=== PATIENT | female | born 1985 | race Caucasian/White ===

== ENCOUNTER → 2019-02-06 14:05 | Outpatient (CLI) | payer MEDICAID, SELFPAY ==
[2019-02-06 16:43] VITALS: BMI 36.0
== END ==
PROVIDERS: Family Provider Student in an Organized Health Care Education/Training Program; PCP Student in an Organized Health Care Education/Training Program; Referring Provider Physician Assistant; Visit Provider Physician Assistant
DX: J02.9 Acute pharyngitis, unspecified (principal)
CPT/HCPCS: 87081; 87880

== ENCOUNTER → 2023-09-20 | Outpatient (CLI) | payer OTHER, SELFPAY ==
--- NOTE | 2023-09-20 12:54 | RAD_ITS ---
STUDY: X-RAY RIGHT FOOT, GREAT TOE REASON FOR EXAM: Female, 37 years old. Injury. TECHNIQUE: 3 views of the right great toe were obtained. COMPARISON: None. FINDINGS: Normal first metatarsal. Normal metatarsophalangeal (M.T.P) joint of the great toe. Normal interphalangeal joint of the great toe. Normal phalanges of the great toe. There is no demonstrated fracture. The soft tissue structures are unremarkable. RAD/Toe(s) Min 2 Views IMPRESSION: Normal x-ray of the right great toe. Electronically Signed: Akhil Magdaleno MD at 13:22 EDT ,
--- OUTSIDE RECORDS SUMMARY | 2023-09-20 21:05 | XMS RPT_ITS | CCD ---
Author Name Unknown Address [address] [place] [address] Organization [facility] Care Team Providers Care Chartered Financial Analyst Name Role Phone Ramon Waller DO Primary Care Provider [phone] RAMON WALLER Primary Care Unavailable MARYSOL SORIANO Referring Unavailable RAMON WALLER Primary Care Unavailable MARYSOL SORIANO Attending Unavailable RAMON WALLER Primary Care Unavailable DENNIS SNYDER Attending Unavailable RAMON WALLER Primary Care Unavailable DENNIS SNYDER Attending Unavailable RAMON WALLER Primary Care Unavailable VALARIE DODD Attending Unavailable MARYSOL SORIANO Referring Unavailable MARYSOL SORIANO Attending Unavailable RAMON WALLER Primary Care Unavailable RAMON WALLER Primary Care Unavailable DENNIS SNYDER Attending Unavailable MARYSOL SORIANO Attending Unavailable RAMON WALLER Primary Care Unavailable RAMON WALLER Primary Care Unavailable DENNIS SNYDER Referring Unavailable DENNIS SNYDER Attending Unavailable Ramon Waller DO Primary Care Provider [phone] Medications Current Medications Medication Drug Class(es) Dates Sig (Normalized) Sig (Original) LORazepam 0.5 mg oral tablet (6 sources) Benzodiazepine Start: 03-02-2023 End: 04-01-2023 take 1 tablet by mouth twice daily as needed LORazepam (ATIVAN) 0.5 mg Indications: Anxiety with depression , Situational anxiety , Insomnia secondary to anxiety Take 1 tablet by mouth twice daily as needed for up to 30 days. 30 tablet 2 03/02/2023 04/01/2023 Active Completed/Discontinued Medications Medication Drug Class(es) Dates Sig (Normalized) Sig (Original) acyclovir 400 mg oral tablet (20 sources) Herpesvirus Nucleoside Analog DNA Polymerase Inhibitor, Herpes Simplex Virus Nucleoside Analog DNA Polymerase Inhibitor, Herpes Zoster Virus Nucleoside Analog DNA Polymerase Inhibitor Start: 02-23-2023 End: 05-16-2023 take 1 tablet by mouth twice daily acyclovir (ZOVIRAX) 400 mg tablet Take 1 tablet by mouth two times a day. 180 tablet 0 05/16/2023 Active Problems Active Problems Problem Classification Problem Date Documented Date Episodic/Chronic Adjustment disorders (20 sources) Adjustment disorder; Translations: [Adjustment disorder, unspecified] Onset: 04-24-2012 04-24-2012 Chronic Allergic reactions (20 sources) Urticaria; Translations: [Urticaria, unspecified] 01-19-2012 Episodic Anxiety disorders (20 sources) Anxiety; Translations: [Anxiety disorder, unspecified] Onset: 07-30-2022 01-18-2012 Chronic Contraceptive and procreative management (3 sources) Contraception status; Translations: [Encounter for other general counseling and advice on contraception] Episodic Disorders usually diagnosed in infancy, childhood, or adolescence (20 sources) Eating disorder; Translations: [Other disorders of eating] Onset: 04-24-2012 04-24-2012 Chronic Esophageal disorders (20 sources) Gastroesophageal reflux disease; Translations: [Gastro-esophageal reflux disease without esophagitis] Onset: 02-25-2009 02-25-2009 Chronic Fluid and electrolyte disorders (1 source) Hyperkalemia; Translations: [Hyperkalemia] Episodic Genitourinary symptoms and ill-defined conditions (20 sources) Genuine stress incontinence; Translations: [Stress incontinence (female) (male)] Onset: 01-05-2022 Chronic Immunizations and screening for infectious disease (1 source) Requires vaccination; Translations: [Encounter for immunization] Episodic Miscellaneous mental health disorders (20 sources) Psychophysiologic insomnia; Translations: [Psychophysiologic insomnia] Onset: 07-20-2016 07-20-2016 Chronic Mood disorders (20 sources) Depressive disorder; Translations: [Depression] Onset: 04-24-2012 04-24-2012 Chronic Nutritional deficiencies (20 sources) Vitamin D deficiency; Translations: [Vitamin D deficiency, unspecified] Onset: 05-11-2018 05-11-2018 Chronic Other congenital anomalies (20 sources) Madelung's deformity; 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), including shoulder girdle] Onset: 06-13-2013 06-13-2013 Chronic Other hereditary and degenerative nervous system conditions (20 sources) Restless legs; Translations: [Restless legs syndrome] Onset: 07-20-2016 07-20-2016 Chronic Other inflammatory condition of skin (2 sources) Perineal irritation; Translations: [Anogenital pruritus, unspecified] Episodic Other nutritional; endocrine; and metabolic disorders (20 sources) Body mass index 40+ - severely obese; Translations: [Morbid (severe) obesity due to excess calories] 11-24-2017 Chronic Other nutritional; endocrine; and metabolic disorders (20 sources) Cholesterol level - finding; Translations: [Lipoprotein deficiency] Onset: 05-11-2018 05-11-2018 Chronic Other nutritional; endocrine; and metabolic disorders (20 sources) Obese class I; Translations: [Obesity, unspecified] Onset: 06-30-2018 06-30-2018 Chronic Other nutritional; endocrine; and metabolic disorders (1 source) Obese class II; Translations: [Obesity, unspecified] Chronic Other nutritional; endocrine; and metabolic disorders (1 source) Morbid (severe) obesity due to excess calories; Translations: [Obesity, Class III, BMI 40-49.9 (morbid obesity) (HCC)] Onset: 11-24-2017 Chronic Other nutritional; endocrine; and metabolic disorders (1 source) Obesity, unspecified; Translations: [Obesity, Class II, BMI 35-39.9] Onset: 07-30-2022 Chronic Other upper respiratory disease (20 sources) Allergic rhinitis; Translations: [Allergic rhinitis, unspecified] Onset: 02-25-2009 02-25-2009 Chronic Viral infection (20 sources) Genital herpes simplex; Translations: [Herpesviral infection of urogenital system, unspecified] 01-19-2012 Chronic Past or Other Problems Problem Classification Problem Date Documented Da te Episodic/Chronic Acquired foot deformities (20 sources) Acquired bilateral pes planus; Translations: [Flat foot [pes planus] (acquired), right foot] Onset: 10-12-2009 10-12-2009 Episodic Malaise and fatigue (20 sources) Malaise and fatigue; Translations: [Other malaise] Onset: 02-25-2009 02-25-2009 Episodic Nausea and vomiting (20 sources) Nausea; Translations: [Nausea] Onset: 02-25-2009 02-25-2009 Episodic Nutritional deficiencies (20 sources) Iron deficiency; Translations: [Iron deficiency] Onset: 07-20-2016 07-20-2016 Episodic Other and unspecified benign neoplasm (19 sources) Lipoma of right upper limb; Translations: [Benign lipomatous neoplasm of skin and subcutaneous tissue of right arm] Onset: 01-05-2022 Episodic Other connective tissue disease (20 sources) Plantar fasciitis; Translations: [Plantar fascial fibromatosis] Onset: 10-12-2009 10-12-2009 Episodic Other connective tissue disease (17 sources) Muscle weakness; Translations: [Muscle weakness (generalized)] Onset: 02-22-2022 Episodic Other ear and sense organ disorders (20 sources) Tinnitus of vascular origin; Translations: [Pulsatile tinnitus, bilateral] Onset: 07-20-2016 07-20-2016 Episodic Other gastrointestinal disorders (20 sources) Abdominal bloating; Translations: [Abdominal distension (gaseous)] Onset: 02-25-2009 02-25-2009 Episodic Other inflammatory condition of skin (1 source) Anogenital pruritus, unspecified; Translations: [Perineal itching, female] Onset: 09-23-2022 Episodic Other lower respiratory disease (1 source) Persistent cough; Translations: [Persistent cough] Onset: 08-29-2022 Episodic Other non-traumatic joint disorders (20 sources) Pain of right wrist; Translations: [Pain in right wrist] Onset: 04-03-2015 04-03-2015 Episodic Other upper respiratory disease (1 source) Epistaxis; Translations: [Frequent nosebleeds] Onset: 08-29-2022 Episodic Viral infection (20 sources) Verruca vulgaris; Translations: [Viral wart, unspecified] Onset: 02-14-2011 02-14-2011 Episodic Results Test Name Value Interpretation Reference Range Facil ity Vital Signs Date Time Vital Sign Value Performing Clinician Teresa farmer 03-02-2023 15:35-0400 Body weight 105.05 kg Marysol Soriano APRN.CNP Work Phone: [facility] 03-02-2023 15:35-0400 Diastolic blood pressure 76 mm[Hg] Marysol Soriano APRN.CNP Work Phone: [facility] 03-02-2023 15:35-0400 Heart rate 65 /min Marysol Soriano APRN.CNP Work Phone: [facility] 03-02-2023 15:35-0400 Respiratory rate 16 /min Marysol Christie ADVICE NURSE.PROMOTIONAL ADVERTISING ASSISTANT Work Phone: [facility] 03-02-2023 15:35-0400 SaO2% (BldA) [Mass fraction] 99 % Marysol Christie ADVICE NURSE.PROMOTIONAL ADVERTISING ASSISTANT Work Phone: [facility] 03-02-2023 15:35-0400 Systolic blood pressure 118 mm[Hg] Marysol Christie ADVICE NURSE.PROMOTIONAL ADVERTISING ASSISTANT Work Phone: [facility] 08-19-2022 14:02-0500 Body weight 102.88 kg Dennis Snyder MD Work Phone: [facility] 08-19-2022 14:02-0500 Diastolic blood pressure 66 mm[Hg] Dennis Snyder MD Work Phone: [facility] 08-19-2022 14:02-0500 Systolic blood pressure 124 mm[Hg] Dennis Snyder MD Work Phone: [facility] 07-27-2022 16:00-0500 Body weight 100.61 kg Marysol Christie ADVICE NURSE.PROMOTIONAL ADVERTISING ASSISTANT Work Phone: [facility] 07-27-2022 16:00-0500 Diastolic blood pressure 82 mm[Hg] Marysol Christie ADVICE NURSE.PROMOTIONAL ADVERTISING ASSISTANT Work Phone: [facility] 07-27-2022 16:00-0500 Heart rate 90 /min Marysol Christie ADVICE NURSE.PROMOTIONAL ADVERTISING ASSISTANT Work Phone: [facility] 07-27-2022 16:00-0500 Respiratory rate 16 /min Marysol Christie ADVICE NURSE.PROMOTIONAL ADVERTISING ASSISTANT Work Phone: [facility] 07-27-2022 16:00-0500 SaO2% (BldA) [Mass fraction] 97 % Marysol Christie ADVICE NURSE.PROMOTIONAL ADVERTISING ASSISTANT Work Phone: [facility] 07-27-2022 16:00-0500 Systolic blood pressure 114 mm[Hg] Marysol Christie ADVICE NURSE.PROMOTIONAL ADVERTISING ASSISTANT Work Phone: [facility] 07-12-2022 15:54-0500 Body height 157 cm Dennis Snyder MD Work Phone: [facility] 07-12-2022 15:54-0500 Body weight 99.34 kg Dennis Snyder MD Work Phone: [facility] 07-12-2022 15:54-0500 Diastolic blood pressure 62 mm[Hg] Dennis Snyder MD Work Phone: [facility] 07-12-2022 15:54-0500 Systolic blood pressure 112 mm[Hg] Dennis Snyder MD Work Phone: [facility] 04-28-2022 15:56-0400 Body height 157 cm Dennis Snyder MD Work Phone: [facility] 04-28-2022 15:56-0400 Body weight 95.71 kg Dennis Snyder MD Work Phone: [facility] 04-28-2022 15:56-0400 Diastolic blood pressure 80 mm[Hg] Dennis Snyder MD Work Phone: [facility] 04-28-2022 15:56-0400 Systolic blood pressure 116 mm[Hg] Dennis Snyder MD Work Phone: [facility] 02-22-2022 07:00-0400 Diastolic blood pressure 84 mm[Hg] Valariehaley BrooksGriffin PT Work Phone: [facility] 02-22-2022 07:00-0400 Systolic blood pressure 122 mm[Hg] Valarie Griffin PT Work Phone: [facility] 01-05-2022 15:51-0400 Body weight 93.89 kg Marysol Hcristie ADVICE NURSE.PROMOTIONAL ADVERTISING ASSISTANT Work Phone: [facility] 01-05-2022 15:51-0400 Diastolic blood pressure 84 mm[Hg] Marysol Christie ADVICE NURSE.PROMOTIONAL ADVERTISING ASSISTANT Work Phone: [facility] 01-05-2022 15:51-0400 Heart rate 77 /min Marysol Christie ADVICE NURSE.PROMOTIONAL ADVERTISING ASSISTANT Work Phone: [facility] 01-05-2022 15:51-0400 Respiratory rate 16 /min Marysol Soriano ADVICE NURSE.PROMOTIONAL ADVERTISING ASSISTANT Work Phone: [facility] 01-05-2022 15:51-0400 SaO2% (BldA) [Mass fraction] 99 % Marysol Soriano ADVICE NURSE.PROMOTIONAL ADVERTISING ASSISTANT Work Phone: [facility] 01-05-2022 15:51-0400 Systolic blood pressure 120 mm[Hg] Marysol Soriano ADVICE NURSE.PROMOTIONAL ADVERTISING ASSISTANT Work Phone: [facility] Encounters Encounter Date Encounter Type Care Provider Facility Start: 05-16-2023 Refill Marysol ludwig ADVICE NURSE.PROMOTIONAL ADVERTISING ASSISTANT Work Phone: [facility] Procedures Date Procedure Procedure Detail Performing Clinician Start: 08-19-2022 Urine test visual color cmprsn meths Dennis Snyder MD Work Phone: Start: 01-05-2022 Urnls dip stick/tabl et rgnt auto w/o microscopy Marysol Soriano ADVICE NURSE.PROMOTIONAL ADVERTISING ASSISTANT Work Phone: Plan of Treatment Date Care Activity Detail Author Start: 06-18-2026 HPV TESTING HPV TESTING [facility] Start: 06-18-2026 PAP TESTING PAP TESTING [facility] Start: 03-26-2026 Urine microalbumin profile [facility] Start: 08-29-2023 COVID-19 VACCINE (3 - Booster for Moderna series) COVID-19 VACCINE (3 - Booster for Moderna series) [facility] Immunizations Immunization Date Immunization Notes Care Provider Fa cility 07-12-2022 Human Papillomavirus 9-valent vaccine Dennis Snyder MD Work Phone: [facility] 04-17-2021 influenza, injectabl e, quadrivalent, contains preservative Ramon Waller DO Work Phone: [facility] 04-17-2021 influenza virus vacc ine, unspecified formulation Marysol Soriano ADVICE NURSE.PROMOTIONAL ADVERTISING ASSISTANT Work Phone: [facility] 11-12-2020 COVID-19 vaccine, fu ll dose (MODERNA) Ramon Waller DO Work Phone: [facility] 10-15-2020 COVID-19 vaccine, fu ll dose (MODERNA) Ramon Waller DO Work Phone: [facility] 05-11-2018 influenza, injectabl e, quadrivalent, contains preservative Ramon Waller DO Work Phone: [facility] 03-26-2016 tetanus toxoid, redu aries diphtheria toxoid, and acellular pertussis vaccine, adsorbed Ramon Waller DO Work Phone: [facility] 01-14-2015 tetanus toxoid, redu aries diphtheria toxoid, and acellular pertussis vaccine, adsorbed Ramon Waller DO Work Phone: [facility] Work Phone: 05-22-2014 hepatitis B vaccine, adult dosage Ramon Waller DO Work Phone: [facility] Work Phone: 04-18-2014 influenza, seasonal, injectable Ramon Waller DO Work Phone: [facility] Work Phone: 12-18-2013 hepatitis B vaccine, adult dosage Ramon Waller DO Work Phone: [facility] Work Phone: 11-12-2013 hepatitis B vaccine, adult dosage Ramon Waller DO Work Phone: [facility] Work Phone: 03-24-2012 influenza virus vacc ine, unspecified formulation Ramon Waller DO Work Phone: [facility] Work Phone: Payers Date Payer Category Payer Medicaid [id number] 2017 Medicaid [employer] [id number] 2017-Present [phone] [address] [place] [address] Medicaid [id number] 2017 Medicaid [id number] 2017 Medicaid [id number] Social History Date Type Detail Facility Start: 02-16-2013 End: 04-28-2022 Tobacco smoking status NHIS Ex-smoker [facility] Work Phone: History of tobacco use Cigarette Smoker [facility] Work Phone: Start: 02-16-2013 End: 03-02-2023 Cigarettes smoked current (pack per day) - Reported 0.3 [facility] Start: 02-16-2013 End: 04-28-2022 Tobacco use and exposure Smokeless tobacco non-user [facility] Work Phone: Start: 06-18-2021 End: 03-03-2023 Alcohol intake Current drinker of alcohol (finding) [facility] Start: 04-09-2020 End: 07-26-2022 History SDOH Alcohol Frequency 2 [facility] Start: 04-09-2020 End: 07-26-2022 History SDOH Alcohol Std Drinks 1 [facility] Start: 02-16-2013 History SDOH Alcohol Comment Socially [facility] Start: 11-17-2019 End: 07-26-2022 History SDOH Social Connections Living 98 [facility] Start: 11-17-2019 History SDOH Physical Activity DPW 0 [facility] Start: 11-17-2019 End: 07-26-2022 History SDOH Stress 4 [facility] Start: 04-09-2020 End: 07-26-2022 History SDOH Financial 3 [facility] Start: 11-16-2019 Education 14 [facility] Start: 1985 Sex Assigned At Female [facility] Start: 12-31-2021 End: 07-26-2022 History SDOH Social Connections Phone 5 [facility] Start: 12-31-2021 History SDOH Physical Activity MPS 6 [facility] Start: 12-26-2021 End: 04-13-2022 Exposure to SARS-CoV-2 (event) Not sure [facility] History of tobacco use Current smoker [facility] Work Phone: Start: 07-26-2022 End: 03-02-2023 Social connection and isolation panel [facility] Do you belong to any clubs or organizations such as hindu groups, unions, fraternal or athletic groups, or school groups? No [facility] How often do you att end meetings of the clubs or organizations you belong to? Patient refused [facility] Are you now , , , , never or living with a partner? Refused [facility] How often to you hav e a drink containing alcohol? Monthly or less [facility] How many standard dr inks containing alcohol do you have on a typical day? 1 or 2 [facility] How often do you hav e 6 or more drinks on 1 occasion? Never [facility] How hard is it for y ou to pay for the very basics like food, housing, medical care, and heating Not very hard [facility] Do you feel stress - tense, restless, nervous, or anxious, or unable to sleep at night because your mind is troubled all the time - these days [OSQ] Very much [facility] (I/We) worried is[place] er (my/our) food would run out before (I/we) got money to buy more. Never true [facility] Start: 2020 Gender identity Identifies as female gender (finding) [facility] Start: 2020 Sexual orientation Heterosexual (finding) [facility] Medical Equipment Procedure Code Equipment Code Equipment Origin al Text Equipment Identifier Dates Dev Cncptv Essur e Perm - [id number] Start: 02-24-2011 Clinical Notes 07-05-2010 to 05-16-2023 Telephone Encounter - Subha Vázquez RN - 05/16/2023 9:44 AM ESTTelephone Encounter - Dangelo Li APRN.[facility] - 03/27/2023 4:31 PM Marysol Piper APRN.CNP - 03/02/2023 3:21 PM EDT Note Date & Type Note Facility 05-16-2023 Miscellaneous Notes Refill request received via [employer]. Patient last seen for annual exam on 07/12/22. Subha Vázquez RN documented in this encounter [facility] 03-27-2023 Miscellaneous Notes PDMP website checked and validated. All prescriptions have been APPROPRIATELY filled. No suspicious activity was identified. 03/27/2023 by Dangelo Li APRN.CNP The following approved medication requests have been transmitted electronically. Requested Prescriptions Signed Prescriptions Disp Refills Phentermine HCl (ADIPEX-P) 37.5 mg tablet 30 tablet 0 Sig: Take 1 tablet by mouth once daily for 30 days. BMI 42.62 Authorizing Provider: DANGELO LI APRN.CNP Patient has been identified by name and date of : Patient phones for refill(s): Requested Prescriptions Pending Prescriptions Disp Refills Phentermine HCl (ADIPEX-P) 37.5 mg tablet 30 tablet 0 Sig: Take 1 tablet by mouth once daily for 30 days. BMI 42.62 Date of last office visit in primary care: 03/02/23 Last 2 Encounter Wt Readings: Date: Wt: 03/02/2023 105.1 kg (231 lb 9.6 oz) 09/23/2022 104.8 kg (231 lb) Previous labs/tests for medication: Not applicable Please advise. Thank you. Alyse Sarabia LPN documented in this encounter [facility] 03-02-2023 Note HNO ID: [id number] Author: Marysol Soriano APRN.RICKY Service: ? Author Type: Nurse Practitioner Type: Progress Notes Filed: 03/03/2023 9:16 AM Note Text: Chief Complaint Patient presents with: Weight Loss: Adipex HPI Nettie Candelario is a 37 year old female who presents here today for Above Complaints. Today: Has taken Adipex in the past. Tolerated well. Stopped vaping 8 months ago and has since gained weight. Since stopping vaping has needed Ativan much less, fingernails have grown-which she has never been able to grow. Exercise-nothing routine. Diet-cutting back on carbs, portion sizes Past medical history, appointments, medications, allergies reviewed. 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 triamcinolone acetonide (KENALOG) 0.1 % ointment Apply to affected area twice daily. For 4 weeks. Then decrease to once daily. DULoxetine (CYMBALTA) 60 mg capsule Take 1 capsule by mouth once daily. triamcinolone acetonide (KENALOG) 0.1 % ointment Apply to affected area twice daily. For 10-14 days. levonorgestrel (MIRENA) 20 mcg/24 hr (5 years) IUD 1 Each by INTRAUTERINE route continuous. No current facility-administered medications on file prior to visit. Social History Social History Tobacco Use Smoking status: Former Packs/day: 0.30 Years: 8.00 Additional pack years: 0.00 Total pack years: 2.40 Types: Cigarettes Smokeless tobacco: Never Vaping Use Vaping Use: Some days Substance Use Topics Alcohol use: Yes Alcohol/week: 5.0 standard drinks of alcohol Types: 1 Cans of Beer (12oz), 1 Mixed Drinks per week Comment: Socially Drug use: No Review of Symptoms REVIEW OF SYSTEMS See HPI, otherwise negative EXAM: BP 118/76 (BP Site: Left Arm, BP Position: Sitting, BP Cuff Size: Regular Adult) Pulse 65 Resp 16 Wt 105.1 kg (231 lb 9.6 oz) LMP (LMP Unknown) SpO2 99% BMI 42.62 kg/m? General Appearance: Well appearing, alert, in no acute distress, well-hydrated, well nourished. and Morbidly obese. Lungs: Lungs clear to auscultation. No wheezing, rhonchi, rales.. Heart: RRR without murmur, gallop, or rubs. No ectopy. Psychiatric: pleasant, cooperative. Health Maintenance List HPV VACCINE(2 - 3-dose SCDM series) due on 08/09/2022 COVID-19 VACCINE(3 - Moderna series) due on 08/29/2023 INFLUENZA(1) due on 03/10/2023 DTAP,TDAP,TD(3 - Td or Tdap) due on 03/26/2026 PAP TESTING due on 06/18/2026 HPV TESTING due on 06/18/2026 HEPATITIS C SCREENING Completed HIV SCREENING Completed Data reviewed Previous records, office notes, OARRS report ASSESSMENT/PLAN: 1. Obesity, Class III, BMI 40-49.9 (morbid obesity) (HCC) - ICD9: 278.01, ICD10: E66.01 (primary diagnosis) Weight increasing - Behavioral and pharmacological intervention Has tolerated phentermine well in the past, is aware of potential common side effects. Follow up in 3 months in office. - PHENTERMINE 37.5 MG TABLET 2. Anxiety with depression - ICD9: 300.4, ICD10: F41.8 Refill given, is working well for her situational anxiety. - LORAZEPAM 0.5 MG TABLET 3. Situational anxiety - ICD9: 300.09, ICD10: F41.8 Refill given, is working well for her situational anxiety. - LORAZEPAM 0.5 MG TABLET 4. 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 - LORAZEPAM 0.5 MG TABLET Marysol Soriano APRN.[facility]ICK[facility] PDMP website checked and validated. All prescriptions have been APPROPRIATELY filled. No suspicious activity was identified. 03/02/2023 by Marysol Soriano CNP. [facility] 03-02-2023 History of Presen t illness Narrative Chief Complaint Patient presents with: Weight Loss: Adipex HPI Nettie Candelario is a 37 year old female who presents here today for Above Complaints. Today: Has taken Adipex in the past. Tolerated well. Stopped vaping 8 months ago and has since gained weight. Since stopping vaping has needed Ativan much less, fingernails have grown-which she has never been able to grow. Exercise-nothing routine. Diet-cutting back on carbs, portion sizes Past medical history, appointments, medications, allergies reviewed. 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 triamcinolone acetonide (KENALOG) 0.1 % ointment Apply to affected area twice daily. For 4 weeks. Then decrease to once daily. DULoxetine (CYMBALTA) 60 mg capsule Take 1 capsule by mouth once daily. triamcinolone acetonide (KENALOG) 0.1 % ointment Apply to affected area twice daily. For 10-14 days. levonorgestrel (MIRENA) 20 mcg/24 hr (5 years) IUD 1 Each by INTRAUTERINE route continuous. No current facility-administered medications on file prior to visit. Social History Social History Tobacco Use Smoking status: Former Packs/day: 0.30 Years: 8.00 Additional pack years: 0.00 Total pack years: 2.40 Types: Cigarettes Smokeless tobacco: Never Vaping Use Vaping Use: Some days Substance Use Topics Alcohol use: Yes Alcohol/week: 5.0 standard drinks of alcohol Types: 1 Cans of Beer (12oz), 1 Mixed Drinks per week Comment: Socially Drug use: No Review of Symptoms REVIEW OF SYSTEMS See HPI, otherwise negative EXAM: BP 118/76 (BP Site: Left Arm, BP Position: Sitting, BP Cuff Size: Regular Adult) Pulse 65 Resp 16 Wt 105.1 kg (231 lb 9.6 oz) LMP (LMP Unknown) SpO2 99% BMI 42.62 kg/m General Appearance: Well appearing, alert, in no acute distress, well-hydrated, well nourished. and Morbidly obese. Lungs: Lungs clear to auscultation. No wheezing, rhonchi, rales.. Heart: RRR without murmur, gallop, or rubs. No ectopy. Psychiatric: pleasant, cooperative. Health Maintenance List HPV VACCINE(2 - 3-dose SCDM series) due on 08/09/2022 COVID-19 VACCINE(3 - Moderna series) due on 08/29/2023 INFLUENZA(1) due on 03/10/2023 DTAP,TDAP,TD(3 - Td or Tdap) due on 03/26/2026 PAP TESTING due on 06/18/2026 HPV TESTING due on 06/18/2026 HEPATITIS C SCREENING Completed HIV SCREENING Completed Data reviewed Previous records, office notes, OARRS report ASSESSMENT/PLAN: 1. Obesity, Class III, BMI 40-49.9 (morbid obesity) (HCC) - ICD9: 278.01, ICD10: E66.01 (primary diagnosis) Weight increasing - Behavioral and pharmacological intervention Has tolerated phentermine well in the past, is aware of potential common side effects. Follow up in 3 months in office. - PHENTERMINE 37.5 MG TABLET 2. Anxiety with depression - ICD9: 300.4, ICD10: F41.8 Refill given, is working well for her situational anxiety. - LORAZEPAM 0.5 MG TABLET 3. Situational anxiety - ICD9: 300.09, ICD10: F41.8 Refill given, is working well for her situational anxiety. - LORAZEPAM 0.5 MG TABLET 4. 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 - LORAZEPAM 0.5 MG TABLET Marysol Soriano APRN.[facility] PDMP website checked and validated. All prescriptions have been APPROPRIATELY filled. No suspicious activity was identified. 03/02/2023 by Marysol Soriano CNP. documented in this encounter [facility] 10-04-2022 Miscellaneous Notes Spoke with pt and results and instructions given. Pt to check with pharmacy today. No further questions or concerns voiced. Madyson Luis LPN Rx sent. I would like to see her in follow up in 4-6 weeks. Dennis Snyder MD Left message for patient to call office. KJ- Please send in RX. Thank you. Jewell Pisano RN ----- Message from Dennis Snyder MD sent at 09/30/2022 4:48 PM EDT ----- Possible lichen simplex chronicus. Recommend minimizing any irritants. Will given kenalog ointment for her to use. Dennis Snyder MD documented in this encounter [facility] 09-23-2022 Note HNO ID: [id number] Author: Dennis Snyder MD Service: ? Author Type: Physician Type: Progress Notes Filed: 09/23/2022 2:03 PM Note Text: Director Of Materials offered: Patient accepts, visit chaperoned by Florence Corcoran MA. Nettie Candelario is a 36 year old female who presents today for a vulvar biopsy. Indication: persistent pruritis. UNIVERSAL PROTOCOL / SAFETY CHECKLIST Procedure to be Performed: Vulvar Biopsy Sign In: A Moment of CARE was completed. Personnel directly involved with the procedure wore the appropriate PPE (Personal Protective Equipment). Patient/Surrogate Stated/Verified: PATIENT VERIFIED(optional for EMERGENT procedures): Patient name, Date of , Relevant allergies, and The intended procedure Time Out Communication: Intended patient and procedure match the source documents. Consent documented and matches the intended procedure. Sign Out: SIGN OUT (optional for EMERGENT procedures): All specimen containers correctly labeled. All instruments, equipment, possible retained foreign bodies accounted for. Post-procedure follow-up management communicated and Plan of Care Visit completed when applicable. PROCEDURE NOTE: GROSS LESIONS: No BIOPSY: Area was cleansed with betadine and anesthetized with 2mL 1% lidocaine with 1:100,000 epi. 4mm Edwards punch used to biopsy region. HEMOSTASIS: Obtained with silver nitrate Procedure Summary: Patient tolerated procedure well. ASSESSMENT: Persistent perineal itching PLAN: Specimens labeled and sent to Pathology. Will notify patient of results in 1-2 weeks. Post-procedure instructions reviewed and written material given to the patient. Dennis Snyder MD [facility] 08-29-2022 Note HNO ID: [id number] Author: Marysol Soriano APRN.[employer] ADVERTISING ASSISTANT Service: ? Author Type: Nurse Practitioner Type: Progress Notes Filed: 08/29/2022 4:08 PM Note Text: Chief Complaint Patient presents with: Follow Up: Anxiety Cough: X 1 month Nose Bleed KENTON Candelario is a 36 year old female who presents here today for Above Complaints. Per appointment with myself on 07/27/2022: KENTON Candelario is a 36 year old female who presents here today for Above Complaints.. Today: Has had some increased anxiety lately specifically with her son moving out of the house. A couple other stresses at home. No SI/HI. Cymbalta is working well, this is a good dose for her. Has also had some difficulty sleeping as well. Likely r/t this stress as well. ASSESSMENT/PLAN: 1. Situational anxiety - ICD9: 300.09, ICD10: F41.8 (primary diagnosis) Continue current duloxetine dose. Labs to r/o contributing causes. Lorazepam prn-patient understands this is temporary and situational only. Trazodone at bedtime prn. Follow up in 1 month, sooner if necessary. - VITAMIN D 25 HYDROXY - TSH BLD - T3 BLD - T4 FREE/FREE THYROX - TRAZODONE 50 MG TABLET - LORAZEPAM 0.5 MG TABLET 2. 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 Labs to r/o contributing causes. Lorazepam prn-patient understands this is temporary and situational only. Trazodone at bedtime prn. Follow up in 1 month, sooner if necessary. - VITAMIN D 25 HYDROXY - TSH BLD - T3 BLD - T4 FREE/FREE THYROX - TRAZODONE 50 MG TABLET - LORAZEPAM 0.5 MG TABLET 3. Anxiety with depression - ICD9: 300.4, ICD10: F41.8 Continue current duloxetine dose. Labs to r/o contributing causes. Lorazepam prn-patient understands this is temporary and situational only. Trazodone at bedtime prn. Follow up in 1 month, sooner if necessary. - VITAMIN D 25 HYDROXY - TSH BLD - T3 BLD - T4 FREE/FREE THYROX - TRAZODONE 50 MG TABLET - LORAZEPAM 0.5 MG TABLET 4. Obesity, Class II, BMI 35-39.9 - ICD9: 278.00, ICD10: E66.9 - HGB A1C - VITAMIN D 25 HYDROXY - TSH BLD - T3 BLD - T4 FREE/FREE THYROX - LIPID PANEL BASIC - CBC - COMP METABOLIC PANEL Marysol Soriano APRN.PROMOTIONAL ADVERTISING ASSISTANT Today: Anxiety has improved since last visit. Nothing beyond current interventions. Is sleeping better overall. Takes Trazodone occasionally. Taking lorazepam about once every other day for her anxiety. Has decreased her screen time-things she sees on social media are one of her causes of anxiety. Cough and nosebleeds x1 month. No trend at all. Has a harsh cough-not currently productive. Negative COVID test. Has Dayquil, Nyquil, Dimetapp, Mucinex, Delsym-none have been effective. Has humidification in her house and has never had a dry house. Nosebleeds are worse when coughing or sneezing. Have lasted as long as 15 minutes. When blows nose it is white with some red blood streaks. Past medical history, appointments, medications, allergies reviewed. 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 triamcinolone acetonide (KENALOG) 0.1 % ointment Apply to affected area twice daily. For 10-14 days. acyclovir (ZOVIRAX) 400 mg tablet Take 1 tablet by mouth twice daily. DULoxetine (CYMBALTA) 60 mg capsule Take 1 capsule by mouth once daily. levonorgestrel (MIRENA) 20 mcg/24 hr (5 years) IUD 1 Each by INTRAUTERINE route continuous. No current facility-administered medications on file prior to visit. Social History Social History Tobacco Use Smoking status: Former Packs/day: 0.30 Years: 8.00 Pack years: 2.40 Types: Cigarettes Smokeless tobacco: Never Vaping Use Vaping Use: Some days Substance Use Topics Alcohol use: Yes Alcohol/week: 5.0 standard drinks Types: 1 Cans of Beer (12oz), 1 Mixed Drinks per week Comment: Socially Drug use: No Review of Symptoms REVIEW OF SYSTEMS See HPI, oth (more content not included)... [facility] 08-19-2022 Note HNO ID: [id number] Author: Dennis Snyder MD Service: ? Author Type: Physician Type: Progress Notes Filed: 08/19/2022 4:52 PM Note Text: Director Of Materials offered: Patient declines. Lissette presents today for IUD insertion for contraception. Patient's last menstrual period was 02/07/2015. GC/chlamydia: Not done: no risk factors and/or patient declines screening test: negative Side effects including irregular bleeding were discussed with the patient. The patient understands that it should be removed in 8 years or sooner if the patient desires a . IUD source: office provided IUD lot #: [id number] Exp date: 09/06/24 UNIVERSAL PROTOCOL / SAFETY CHECKLIST Procedure to be Performed: Intrauterine Device (IUD) Removal and Insertion Mirena Sign In: A Moment of CARE was completed. Personnel directly involved with the procedure wore the appropriate PPE (Personal Protective Equipment). Patient/Surrogate Stated/Verified: PATIENT VERIFIED(optional for EMERGENT procedures): Patient name, Date of , Relevant allergies, and The intended procedure Time Out Communication: Intended patient and procedure match the source documents. Consent documented and matches the intended procedure. Sign Out: SIGN OUT (optional for EMERGENT procedures): No specimen collected. All instruments, equipment, possible retained foreign bodies accounted for. Post-procedure follow-up management communicated and Plan of Care Visit completed when applicable. PROCEDURE: (REMOVAL) Speculum placed in vagina, IUD string visualized and grasped with ring forceps. (INSERTION) The cervix was prepped with betadine. The uterus sounded to 7.5 cm and the uterus is Midposition.. Using sterile technique, the Mirena IUD was inserted without difficulty and the string was cut to 4cm from the external os of the cervix. Patient tolerated procedure well. PLAN: Patient was advised to observe for signs and symptoms of infection including but not limited to fever, malodorous vaginal discharge and/or pain. The patient was told to check the string monthly for accurate placement. Bleeding expectations were reviewed. Follow up for next annual exam or sooner as needed. Dennis Snyder MD [facility] 08-19-2022 Instructions Florence Corcoran Ma - 08/19/2022 1:51 PM EST POST IUD INSTRUCTIONS You may have irregular bleeding during the first 3 months of use. You may have mild-severe cramping for the next 48 hours. You may use over the counter medication (Motrin, Tylenol) as needed. Your IUD must be removed or replaced based on the following table: IUD Type Removed or replaced within: Isidra 3 years Kyleena 5 years Mirena 8 years Paragard 10 years Call my office for signs/symptoms of infection such as severe cramping, fever, or unusual bleeding. Check for string placement as instructed by your doctor. If you have any additional questions, please contact the office. documented in this encounter [facility] 08-19-2022 History of Presen t illness Narrative Director Of Materials offered: Patient declines. Lissette presents today for IUD insertion for contraception. Patient's last menstrual period was 02/07/2015. GC/chlamydia: Not done: no risk factors and/or patient declines screening test: negative Side effects including irregular bleeding were discussed with the patient. The patient understands that it should be removed in 8 years or sooner if the patient desires a . IUD source: office provided IUD lot #: [id number] Exp date: 09/06/24 UNIVERSAL PROTOCOL / SAFETY CHECKLIST Procedure to be Performed: Intrauterine Device (IUD) Removal and Insertion Mirena Sign In: A Moment of CARE was completed. Personnel directly involved with the procedure wore the appropriate PPE (Personal Protective Equipment). Patient/Surrogate Stated/Verified: PATIENT VERIFIED(optional for EMERGENT procedures): Patient name, Date of , Relevant allergies, and The intended procedure Time Out Communication: Intended patient and procedure match the source documents. Consent documented and matches the intended procedure. Sign Out: SIGN OUT (optional for EMERGENT procedures): No specimen collected. All instruments, equipment, possible retained foreign bodies accounted for. Post-procedure follow-up management communicated and Plan of Care Visit completed when applicable. PROCEDURE: (REMOVAL) Speculum placed in vagina, IUD string visualized and grasped with ring forceps. (INSERTION) The cervix was prepped with betadine. The uterus sounded to 7.5 cm and the uterus is Midposition.. Using sterile technique, the Mirena IUD was inserted without difficulty and the string was cut to 4cm from the external os of the cervix. Patient tolerated procedure well. PLAN: Patient was advised to observe for signs and symptoms of infection including but not limited to fever, malodorous vaginal discharge and/or pain. The patient was told to check the string monthly for accurate placement. Bleeding expectations were reviewed. Follow up for next annual exam or sooner as needed. Dennis Snyder MD documented in this encounter [facility] 08-10-2022 Miscellaneous Notes Last Office Visit: 07/27/2022 Future Office Visit: 08/24/2022 Requested Prescriptions Pending Prescriptions Disp Refills DULoxetine (CYMBALTA) 60 mg capsule 90 capsule 1 Sig: Take 1 capsule by mouth once daily. Date of Last Labs: 07/30/2022 documented in this encounter [facility] 08-03-2022 Miscellaneous Notes Spoke with patient. Given message from provider's office. Patient verbalizes understanding. Selma Peterson RN Left message to return call. Please call patient and let her know that lab work looks good. Potassium level is very slightly elevated. I would like repeat potassium level in 2 weeks. Order placed. Thyroid level overall look unremarkable. We will continue to monitor these. Vitamin D level is low. I would recommend a 5000 units per day of vitamin d3 supplement. This is found over the counter. All other labs look fantastic! Keep up the good work. Thank you, Dangelo Li APRN.[facility] documented in this encounter [facility] 07-27-2022 Note HNO ID: [id number] Author: Marysol Soriano APRN.RICKY Service: ? Author Type: Nurse Practitioner Type: Progress Notes Filed: 07/27/2022 6:48 PM Note Text: Chief Complaint Patient presents with: Anxiety HPI Nettie Candelario is a 36 year old female who presents here today for Above Complaints.. Today: Has had some increased anxiety lately specifically with her son moving out of the house. A couple other stresses at home. No SI/HI. Cymbalta is working well, this is a good dose for her. Has also had some difficulty sleeping as well. Likely r/t this stress as well. Past medical history, appointments, medications, allergies reviewed. 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 triamcinolone acetonide (KENALOG) 0.1 % ointment Apply to affected area twice daily. For 10-14 days. DULoxetine (CYMBALTA) 60 mg capsule Take 1 capsule by mouth once daily. acyclovir (ZOVIRAX) 400 mg tablet Take 1 tablet by mouth twice daily. DULoxetine (CYMBALTA) 60 mg capsule Take 1 capsule by mouth once daily. levonorgestrel (MIRENA) 20 mcg/24 hr (5 years) IUD 1 Each by INTRAUTERINE route continuous. No current facility-administered medications on file prior to visit. Social History Social History Tobacco Use Smoking status: Former Packs/day: 0.30 Years: 8.00 Pack years: 2.40 Types: Cigarettes Smokeless tobacco: Never Vaping Use Vaping Use: Some days Substance Use Topics Alcohol use: Yes Alcohol/week: 5.0 standard drinks Types: 1 Cans of Beer (12oz), 1 Mixed Drinks per week Comment: Socially Drug use: No Review of Symptoms REVIEW OF SYSTEMS See HPI, otherwise negative EXAM: BP 114/82 (BP Site: Left Arm, BP Position: Sitting, BP Cuff Size: Regular Adult) Pulse 90 Resp 16 Wt 100.6 kg (221 lb 12.8 oz) LMP 02/07/2015 SpO2 97% BMI 40.82 kg/m? General Appearance: Well appearing, alert, in no acute distress, well-hydrated, well nourished.. Lungs: Lungs clear to auscultation. No wheezing, rhonchi, rales.. Heart: RRR without murmur, gallop, or rubs. No ectopy. Psychiatric: pleasant, cooperative, no SI/HI. Health Maintenance List COVID-19 VACCINE(3 - Booster for Moderna series) due on 01/07/2021 INFLUENZA(1) due on 03/10/2022 DTAP,TDAP,TD(3 - Td or Tdap) due on 03/26/2026 PAP TESTING due on 06/18/2026 HPV TESTING due on 06/18/2026 HEPATITIS C SCREENING Completed HIV SCREENING Completed Data reviewed Previous records, office notes, OARRS report ASSESSMENT/PLAN: 1. Situational anxiety - ICD9: 300.09, ICD10: F41.8 (primary diagnosis) Continue current duloxetine dose. Labs to r/o contributing causes. Lorazepam prn-patient understands this is temporary and situational only. Trazodone at bedtime prn. Follow up in 1 month, sooner if necessary. - VITAMIN D 25 HYDROXY - TSH BLD - T3 BLD - T4 FREE/FREE THYROX - TRAZODONE 50 MG TABLET - LORAZEPAM 0.5 MG TABLET 2. 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 Labs to r/o contributing causes. Lorazepam prn-patient understands this is temporary and situational only. Trazodone at bedtime prn. Follow up in 1 month, sooner if necessary. - VITAMIN D 25 HYDROXY - TSH BLD - T3 BLD - T4 FREE/FREE THYROX - TRAZODONE 50 MG TABLET - LORAZEPAM 0.5 MG TABLET 3. Anxiety with depression - ICD9: 300.4, ICD10: F41.8 Continue current duloxetine dose. Labs to r/o contributing causes. Lorazepam prn-patient understands this is temporary and situational only. Trazodone at bedtime prn. Follow up in 1 month, sooner if necessary. - VITAMIN D 25 HYDROXY - TSH BLD - T3 BLD - T4 FREE/FREE THYROX - TRAZODONE 50 MG TABLET - LORAZEPAM 0.5 MG TABLET 4. Obesity, Class II, BMI 35-39.9 - ICD9: 278.00, ICD10: E66.9 - HGB A1C - VITAMIN D 25 HYDROXY - TSH BLD - T3 BLD - T4 FREE/FREE THYROX - LIPID PANEL BASIC - CBC - COMP METABOLIC PANEL Marysol Sroiano APRN.CNP PDMP web (more content not included)... [facility] 07-27-2022 Instructions Marysol Soriano APRN.CNP - 07/27/2022 4:39 PM EST Get your labs drawn May continue to take ativan as needed for anxiety, continue yoga and trying to eliminate triggers for anxiety Try trazodone at night for sleep, if 1 tablet is too much you can try a 1/2 tablet as well documented in this encounter [facility] 07-27-2022 History of Presen t illness Narrative Chief Complaint Patient presents with: Anxiety HPI Nettie Candelario is a 36 year old female who presents here today for Above Complaints.. Today: Has had some increased anxiety lately specifically with her son moving out of the house. A couple other stresses at home. No SI/HI. Cymbalta is working well, this is a good dose for her. Has also had some difficulty sleeping as well. Likely r/t this stress as well. Past medical history, appointments, medications, allergies reviewed. 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 triamcinolone acetonide (KENALOG) 0.1 % ointment Apply to affected area twice daily. For 10-14 days. DULoxetine (CYMBALTA) 60 mg capsule Take 1 capsule by mouth once daily. acyclovir (ZOVIRAX) 400 mg tablet Take 1 tablet by mouth twice daily. DULoxetine (CYMBALTA) 60 mg capsule Take 1 capsule by mouth once daily. levonorgestrel (MIRENA) 20 mcg/24 hr (5 years) IUD 1 Each by INTRAUTERINE route continuous. No current facility-administered medications on file prior to visit. Social History Social History Tobacco Use Smoking status: Former Packs/day: 0.30 Years: 8.00 Pack years: 2.40 Types: Cigarettes Smokeless tobacco: Never Vaping Use Vaping Use: Some days Substance Use Topics Alcohol use: Yes Alcohol/week: 5.0 standard drinks Types: 1 Cans of Beer (12oz), 1 Mixed Drinks per week Comment: Socially Drug use: No Review of Symptoms REVIEW OF SYSTEMS See HPI, otherwise negative EXAM: BP 114/82 (BP Site: Left Arm, BP Position: Sitting, BP Cuff Size: Regular Adult) Pulse 90 Resp 16 Wt 100.6 kg (221 lb 12.8 oz) LMP 02/07/2015 SpO2 97% BMI 40.82 kg/m General Appearance: Well appearing, alert, in no acute distress, well-hydrated, well nourished.. Lungs: Lungs clear to auscultation. No wheezing, rhonchi, rales.. Heart: RRR without murmur, gallop, or rubs. No ectopy. Psychiatric: pleasant, cooperative, no SI/HI. Health Maintenance List COVID-19 VACCINE(3 - Booster for Moderna series) due on 01/07/2021 INFLUENZA(1) due on 03/10/2022 DTAP,TDAP,TD(3 - Td or Tdap) due on 03/26/2026 PAP TESTING due on 06/18/2026 HPV TESTING due on 06/18/2026 HEPATITIS C SCREENING Completed HIV SCREENING Completed Data reviewed Previous records, office notes, [facility] report ASSESSMENT/PLAN: 1. Situational anxiety - ICD9: 300.09, ICD10: F41.8 (primary diagnosis) Continue current duloxetine dose. Labs to r/o contributing causes. Lorazepam prn-patient understands this is temporary and situational only. Trazodone at bedtime prn. Follow up in 1 month, sooner if necessary. - VITAMIN D 25 HYDROXY - TSH BLD - T3 BLD - T4 FREE/FREE THYROX - TRAZODONE 50 MG TABLET - LORAZEPAM 0.5 MG TABLET 2. 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 Labs to r/o contributing causes. Lorazepam prn-patient understands this is temporary and situational only. Trazodone at bedtime prn. Follow up in 1 month, sooner if necessary. - VITAMIN D 25 HYDROXY - TSH BLD - T3 BLD - T4 FREE/FREE THYROX - TRAZODONE 50 MG TABLET - LORAZEPAM 0.5 MG TABLET 3. Anxiety with depression - ICD9: 300.4, ICD10: F41.8 Continue current duloxetine dose. Labs to r/o contributing causes. Lorazepam prn-patient understands this is temporary and situational only. Trazodone at bedtime prn. Follow up in 1 month, sooner if necessary. - VITAMIN D 25 HYDROXY - TSH BLD - T3 BLD - T4 FREE/FREE THYROX - TRAZODONE 50 MG TABLET - LORAZEPAM 0.5 MG TABLET 4. Obesity, Class II, BMI 35-39.9 - ICD9: 278.00, ICD10: E66.9 - HGB A1C - VITAMIN D 25 HYDROXY - TSH BLD - T3 BLD - T4 FREE/FREE THYROX - LIPID PANEL BASIC - CBC - COMP METABOLIC PANEL Marysol Soriano APRN.CNP PDMP website checked and validated. All prescriptions have been APPROPRIATELY filled. No suspicious activity was identified. 07/27/2022 by Marysol Soriano CNP. documented in this encounter [facility] 07-12-2022 Note HNO ID: [id number] Author: Florence Corcoran Ma Service: ? Author Type: ? Type: Progress Notes Filed: 07/12/2022 4:26 PM Note Text: Patient identified by name and date of . Nettie Pozo Shows is here for her HPV 9 vaccination, injection # one of the series. Patient ?No Gardasil injection was given without incident. See immunizations for details of immunizations administered today. VIS sheet provided: Yes Patient advised to follow up in 2 months from the 1st injection Provider Dennis Snyder MD was present in office at time of injection. [facility] 07-12-2022 Note HNO ID: [id number] Author: Dennis Snyder MD Service: ? Author Type: Physician Type: Progress Notes Filed: 07/12/2022 4:26 PM Note Text: Lissette is a 36 year old who presents for an annual gynecologic exam. She still has a small spot of itching. Menses: no menses - Mirena IUD - just spotting. Contraception: IUD HPV vaccine: No Last Pap: 06/25/2021 normal HPV: 06/22/2021 negative History of abnormal pap: Yes - LEEP 1999 Last mammogram: never OB History T3 L3 SAB0 IAB0 Ectopic0 Multiple0 Live Births3 K 9 Handler/ Deputy History LMP: 02/07/2015, IUD Age at Menarche: Age at First : Age at Menopause: K 7 Handler/ Deputy History Comments: Sexual Activity: Not Currently; Male; Essure/Mirena Contraception: Surgical PAST MEDICAL HISTORY Diagnosis Date Abdominal Bloating Allergic Rhinitis Anxiety Depression Genital herpes GERD (Gastroesophageal Reflux Disease) History of abnormal Pap smear Madelung's deformity Obesity Other Malaise and Fatigue Urticaria PAST SURGICAL HISTORY Procedure Laterality Date CONIZATION CERVIX W/WO DANDC RPR ELTRD EXC 1999 LEEP-Cervix PAST SURGICAL HISTORY OF 2010 sterilization with essure PAST SURGICAL HISTORY OF 02/07/14 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 REMOVE TONSILS AND ADENOIDS; AGE 12 OVER FAMILY HISTORY Adopted: Yes Problem Relation Age of Onset other (Rapid Heart Rate [Other]) Mother SVT Cancer Maternal Grandfather stomach cancer Emphysema Maternal Grandmother SOCIAL HISTORY Social History Tobacco Use Smoking status: Former Packs/day: 0.30 Years: 8.00 Pack years: 2.40 Types: Cigarettes Smokeless tobacco: Never Vaping Use Vaping Use: Some days Substance Use Topics Alcohol use: Yes Alcohol/week: 5.0 standard drinks Types: 1 Cans of Beer (12oz), 1 Mixed Drinks per week Comment: Socially Drug use: No REVIEW OF SYSTEMS Abdomen: No abdominal pain, nausea, vomiting, diarrhea, or constipation. No bloating, early satiety, indigestion, or increased flatulence. Bladder: No dysuria, gross hematuria, urinary frequency, urinary urgency, or incontinence. Breast: No breast lumps, nipple d/c, overlying skin changes, redness or skin retraction. Allergies and current medication updated:Yes EXAM: BP 112/62 Ht 5' 1.81 (1.57m) Wt 219 lb (99.3kg) LMP 02/07/2015 BMI 40.30 kg/(m2). GENERAL: pleasant, female in no apparent distress BREAST: soft, non-tender, symmetric, no dominant mass, normal nipple-areolar complex, no lymphadenopathy, and no nipple discharge CHEST: Normal inspiratory effort ABDOMEN: soft, non-tender, and no masses PELVIC: external genitalia normal, normal Bartholin's glands, urethra, Saxapahaw's glands, no vulvar lesions, no cervical lesions, physiologic discharge present, normal appearing perineal body and perianal region (patient pointed to area of itching on perineum AND it is normal in appearance) BIMANUAL: uterus normal size, shape and consistency, no adnexal masses, and non-tender RECTOVAGINAL: deferred. NEURO: alert and oriented x3,exam grossly non-focal EXTREMITIES: normal ASSESSMENT/PLAN: 1) Health maintenance: Pap/HPV up to date. Mammogram starting age 40. Nutrition, exercise and routine health maintenance exams reviewed. HPV vaccine: ordered 2) Contraception: IUD. Contraceptive options reviewed and information provided. Follow up for removal AND new Mirena insertion. 3) Perineal itching - rx kenalog ointment given. If itching persists recommend biopsy. 4) Follow up one year or sooner as needed Dennis Snyder MD [facility] 07-12-2022 History of Presen t illness Narrative Patient identified by name and date of . Nettie Pozo Shows is here for her HPV 9 vaccination, injection # one of the series. Patient ?No Gardasil injection was given without incident. See immunizations for details of immunizations administered today. VIS sheet provided: Yes Patient advised to follow up in 2 months from the 1st injection Provider Dennis Snyder MD was present in office at time of injection. Lissette is a 36 year old who presents for an annual gynecologic exam. She still has a small spot of itching. Menses: no menses - Mirena IUD - just spotting. Contraception: IUD HPV vaccine: No Last Pap: 06/25/2021 normal HPV: 06/22/2021 negative History of abnormal pap: Yes - LEEP 1999 Last mammogram: never OB History T3 L3 SAB0 IAB0 Ectopic0 Multiple0 Live Births3 K 9 Handler/ Deputy History LMP: 02/07/2015, IUD Age at Menarche: Age at First : Age at Menopause: K 7 Handler/ Deputy History Comments: Sexual Activity: Not Currently; Male; Essure/Mirena Contraception: Surgical PAST MEDICAL HISTORY Diagnosis Date Abdominal Bloating Allergic Rhinitis Anxiety Depression Genital herpes GERD (Gastroesophageal Reflux Disease) History of abnormal Pap smear Madelung's deformity Obesity Other Malaise and Fatigue Urticaria PAST SURGICAL HISTORY Procedure Laterality Date CONIZATION CERVIX W/WO D&C RPR ELTRD EXC 1999 LEEP-Cervix PAST SURGICAL HISTORY OF 2010 sterilization with essure PAST SURGICAL HISTORY OF 02/07/14 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 REMOVE TONSILS AND ADENOIDS; AGE 12 OVER FAMILY HISTORY Adopted: Yes Problem Relation Age of Onset other (Rapid Heart Rate [Other]) Mother SVT Cancer Maternal Grandfather stomach cancer Emphysema Maternal Grandmother SOCIAL HISTORY Social History Tobacco Use Smoking status: Former Packs/day: 0.30 Years: 8.00 Pack years: 2.40 Types: Cigarettes Smokeless tobacco: Never Vaping Use Vaping Use: Some days Substance Use Topics Alcohol use: Yes Alcohol/week: 5.0 standard drinks Types: 1 Cans of Beer (12oz), 1 Mixed Drinks per week Comment: Socially Drug use: No REVIEW OF SYSTEMS Abdomen: No abdominal pain, nausea, vomiting, diarrhea, or constipation. No bloating, early satiety, indigestion, or increased flatulence. Bladder: No dysuria, gross hematuria, urinary frequency, urinary urgency, or incontinence. Breast: No breast lumps, nipple d/c, overlying skin changes, redness or skin retraction. Allergies and current medication updated:Yes EXAM: BP 112/62 Ht 5' 1.81 (1.57m) Wt 219 lb (99.3kg) LMP 02/07/2015 BMI 40.30 kg/(m^2). GENERAL: pleasant, female in no apparent distress BREAST: soft, non-tender, symmetric, no dominant mass, normal nipple-areolar complex, no lymphadenopathy, and no nipple discharge CHEST: Normal inspiratory effort ABDOMEN: soft, non-tender, and no masses PELVIC: external genitalia normal, normal Bartholin's glands, urethra, Saxapahaw's glands, no vulvar lesions, no cervical lesions, physiologic discharge present, normal appearing perineal body and perianal region (patient pointed to area of itching on perineum & it is normal in appearance) BIMANUAL: uterus normal size, shape and consistency, no adnexal masses, and non-tender RECTOVAGINAL: deferred. NEURO: alert and oriented x3,exam grossly non-focal EXTREMITIES: normal ASSESSMENT/PLAN: 1) Health maintenance: Pap/HPV up to date. Mammogram starting age 40. Nutrition, exercise and routine health maintenance exams reviewed. HPV vaccine: ordered 2) Contraception: IUD. Contraceptive options reviewed and information provided. Follow up for removal & new Mirena insertion. 3) Perineal itching - rx kenalog ointment given. If itching persists recommend biopsy. 4) Follow up one year or sooner as needed Dennis Snyder MD documented in this encounter [facility] 07-12-2022 Arvind Corcoran Az - 07/12/2022 4:17 PM EST Gardasil Gardasil is a vaccine to protect against Human Papillomavirus (HPV) types 6, 11, 16, 18, 31,33,45, 52, 58. These viruses cause cancer and precancerous lesions on the cervix (opening between vagina and uterus), in the vagina and on the vulva (skin around the outside of the vagina) as well as genital warts. The vaccine cannot cause these diseases and cannot treat them if already present. Gardasil works best if given before contact with HPV. Most people are exposed to HPV soon after starting sexual activity. The vaccine is recommended between the ages of 9 and 45. Gardasil does not protect against all strains of HPV. Women who receive the vaccine still need to have regular pelvic exams and cervical cancer screening with the pap smear. You should ask your doctor if Gardasil is right for you if you have a weakened immune system, a bleeding disorder, plan to become soon or have a current illness causing fever. Gardasil is not recommended for women. You should be sure your doctor is aware of any allergies you have and all medications and herbal supplements you take. Gardasil is given to those ages 9-14 in 2 doses at 0 and 8 months. In ages 15-45, three injections are given at 0,2,6 months. Common side effects include pain, redness, itching and swelling at the injection site, nausea, fever, dizziness and fainting. Rare but potentially serious reactions have been reported. These include allergic reaction, swollen glands, joint and muscle pain, weakness and Guillain-[place] syndrome. documented in this encounter [facility] 04-28-2022 Note HNO ID: [id number] Author: Dennis Snyder MD Service: ? Author Type: Physician Type: Progress Notes Filed: 04/28/2022 4:36 PM Note Text: Nettie Candelario is a 36 year old female who presents for problem visit. HPI: Patient reports intermittent perineal irritation. She states she washes frequently and uses Dove bodywash. OB History T3 L3 SAB0 IAB0 Ectopic0 Multiple0 Live Births3 K 9 Handler/ Deputy History LMP: 02/07/2015, IUD Age at Menarche: Age at First : Age at Menopause: K 7 Handler/ Deputy History Comments: Sexual Activity: Not Currently; Male; Essure Contraception: Surgical PAST MEDICAL HISTORY Diagnosis Date Abdominal Bloating Allergic Rhinitis Anxiety Depression Genital herpes GERD (Gastroesophageal Reflux Disease) History of abnormal Pap smear Madelung's deformity Obesity Other Malaise and Fatigue Urticaria PAST SURGICAL HISTORY Procedure Laterality Date CONIZATION CERVIX W/WO DANDC RPR ELTRD EXC 1999 LEEP-Cervix PAST SURGICAL HISTORY OF 2010 sterilization with essure PAST SURGICAL HISTORY OF 02/07/14 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 REMOVE TONSILS AND ADENOIDS; AGE 12 OVER FAMILY HISTORY Adopted: Yes Problem Relation Age of Onset other (Rapid Heart Rate [Other]) Mother SVT Cancer Maternal Grandfather stomach cancer Emphysema Maternal Grandmother Social History Tobacco Use Smoking status: Former Packs/day: 0.30 Years: 8.00 Pack years: 2.40 Types: Cigarettes Smokeless tobacco: Never Vaping Use Vaping Use: Some days Substance Use Topics Alcohol use: Yes Alcohol/week: 5.0 standard drinks Types: 1 Cans of Beer (12oz), 1 Mixed Drinks per week Comment: Socially Drug use: No Current Outpatient Medications Medication Sig DULoxetine (CYMBALTA) 60 mg capsule Take 1 capsule by mouth once daily. acyclovir (ZOVIRAX) 400 mg tablet Take 1 tablet by mouth twice daily. DULoxetine (CYMBALTA) 60 mg capsule Take 1 capsule by mouth once daily. levonorgestrel (MIRENA) 20 mcg/24 hr (5 years) IUD 1 Each by INTRAUTERINE route continuous. No current facility-administered medications for this visit. Allergies As of Date: 04/28/2022 (No Known Allergies) Fully Assessed 04/28/2022 Allergies and current medication updated:Yes EXAM: BP 116/80 Ht 5' 1.811 (1.57m) Wt 211 lb (95.7kg) LMP 02/07/2015 BMI 38.83 kg/(m2). GENERAL: pleasant, female in no apparent distress PELVIC: external genitalia normal, no vulvar lesions, normal appearing perineal body and perianal region ASSESSMENT AND PLAN: 36yo female with perineal irritation Patient reassured perineum is normal in appearance. Advised on perineal hygiene AND vitamin AANDD barrier ointment. Patient to call if irritation fails to resolve. Medical Decision Making: Problems: Minimal: Self-limited or minor problem Risk: Minimal: Minimal risk from testing/treatment Medical Decision Making Level: 2 - Straightforward Dennis Snyder MD [facility] 04-28-2022 Instructions Dennis Snyder MD - 04/28/2022 4:25 PM EDT Minimizing irritation of the vulva (area around the vagina) Wear white cotton underwear. Avoid synthetic fabrics and tight clothing. Sleep wearing shorts or pajama bottoms without underwear. Shower as soon as possible after exercise. Avoid clothing detergents and soaps with perfumes or dyes. Use warm (not hot) water to wash the vulva and if you use soap use a product designed for sensitive skin (like Dove or Cetaphil). Do not douche or use creams/powders in the vulvar area unless instructed by your physician. If you must douche, use only plain warm water. Make sure the vulva is dry before dressing by patting dry with a towel. Avoid vigorous rubbing with the towel. You may want to use the blow dryer (on the cool setting only!) on the vulva. The most important way to let your body heal is by avoiding scratching. Many patients find it difficult to avoid scratching at night when they are most aware of the itchiness. You can try taking Benadryl just before bedtime. Some women find it helpful to wear cotton gloves to bed to avoid scratching at night. Vitamin A&D barrier ointment documented in this encounter [facility] 04-28-2022 History of Presen t illness Narrative Nettie Candelario is a 36 year old female who presents for problem visit. HPI: Patient reports intermittent perineal irritation. She states she washes frequently and uses Dove bodywash. OB History T3 L3 SAB0 IAB0 Ectopic0 Multiple0 Live Births3 K 9 Handler/ Deputy History LMP: 02/07/2015, IUD Age at Menarche: Age at First : Age at Menopause: K 7 Handler/ Deputy History Comments: Sexual Activity: Not Currently; Male; Essure Contraception: Surgical PAST MEDICAL HISTORY Diagnosis Date Abdominal Bloating Allergic Rhinitis Anxiety Depression Genital herpes GERD (Gastroesophageal Reflux Disease) History of abnormal Pap smear Madelung's deformity Obesity Other Malaise and Fatigue Urticaria PAST SURGICAL HISTORY Procedure Laterality Date CONIZATION CERVIX W/WO D&C RPR ELTRD EXC 1999 LEEP-Cervix PAST SURGICAL HISTORY OF 2010 sterilization with essure PAST SURGICAL HISTORY OF 02/07/14 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 REMOVE TONSILS AND ADENOIDS; AGE 12 OVER FAMILY HISTORY Adopted: Yes Problem Relation Age of Onset other (Rapid Heart Rate [Other]) Mother SVT Cancer Maternal Grandfather stomach cancer Emphysema Maternal Grandmother Social History Tobacco Use Smoking status: Former Packs/day: 0.30 Years: 8.00 Pack years: 2.40 Types: Cigarettes Smokeless tobacco: Never Vaping Use Vaping Use: Some days Substance Use Topics Alcohol use: Yes Alcohol/week: 5.0 standard drinks Types: 1 Cans of Beer (12oz), 1 Mixed Drinks per week Comment: Socially Drug use: No Current Outpatient Medications Medication Sig DULoxetine (CYMBALTA) 60 mg capsule Take 1 capsule by mouth once daily. acyclovir (ZOVIRAX) 400 mg tablet Take 1 tablet by mouth twice daily. DULoxetine (CYMBALTA) 60 mg capsule Take 1 capsule by mouth once daily. levonorgestrel (MIRENA) 20 mcg/24 hr (5 years) IUD 1 Each by INTRAUTERINE route continuous. No current facility-administered medications for this visit. Allergies As of Date: 04/28/2022 (No Known Allergies) Fully Assessed 04/28/2022 Allergies and current medication updated:Yes EXAM: BP 116/80 Ht 5' 1.811 (1.57m) Wt 211 lb (95.7kg) LMP 02/07/2015 BMI 38.83 kg/(m^2). GENERAL: pleasant, female in no apparent distress PELVIC: external genitalia normal, no vulvar lesions, normal appearing perineal body and perianal region ASSESSMENT AND PLAN: 36yo female with perineal irritation Patient reassured perineum is normal in appearance. Advised on perineal hygiene & vitamin A&D barrier ointment. Patient to call if irritation fails to resolve. Medical Decision Making: Problems: Minimal: Self-limited or minor problem Risk: Minimal: Minimal risk from testing/treatment Medical Decision Making Level: 2 - Straightforward Dennis Snyder MD documented in this encounter [facility] 03-11-2022 Note HNO ID: [id number] Author: Valarie Griffin PT Service: ? Author Type: Physical Therapist Type: Progress Notes Filed: 05/10/2022 7:59 AM Note Text: 05/10/2022 [facility] PHYSICAL THERAPY DISCONTINUANCE OF CARE Plan of Care Period: Start of Care Date: 02/22/22 Last Visit Date: 03/11/2022 Therapy Program: The following is a summary of the interventions provided for this episode of care; Therapeutic exercise and Self-halfway management Assessment: Based on most recent visit, patient was progressing as expected toward functional goals based on documented subjective information on progress. Unable to formally assess goal achievement, as patient has not returned to therapy or scheduled additional follow-up appointments. Reason for Discontinuation of Care: Patient has not returned to therapy or scheduled additional follow-up appointments. Valarie Griffin, PT Episode Visit Count: 3 Therapist That Will Oversee The Plan Of Care: Valarie Griffin Start of Care Date: 02/22/22 Onset Date: 02/22/21 Plan of Care Certification Date: 02/22/22 Next Certification Due Date: 04/23/22 Patient Identified by Name and Date of : Yes [facility] PHYSICAL THERAPY TREATMENT NOTE ASSESSMENT: Nettie Pozo Shows tolerated the session with no issues. She demonstrated improvements in urinary urgency, frequency, nocturia, and incontinence per patient report. Patient exhibited good endurance with exercises. The patient will continue to benefit from ongoing skilled physical therapy to progress toward set goals. PLAN FOR NEXT VISIT: continue to progress exercises SUBJECTIVE: Patient Reason for Visit: Pt reports improvement in urinary frequency, now urinating every 1.75-2.5 hours. Pt reports not waking at all last night to urinate, otherwise waking up on average 2x/night. Pt reports no urinary urgency, able to sense when bladder needs to empty without there being an emergency. Pt reports no UI since last session. Pt reports good compliance with HEP. Pain: Pain Pain Level: 0 Post Treatment Pain Post Treatment Pain Level: 0 OBJECTIVE MEASURES WITH LEVEL OF FUNCTION: Pelvic Floor Stress Incontinence: No Urgency: No Nocturia (times per night): 2 Daytime Frequency (hours): 1.75-2.5 TREATMENT: Therapeutic Exercise: 1: kegal holds, 4sec hold with 4sec rest, 1x10 2: supine TA bracing, 1x10 3: *supine TA bracing with alternating marches, 2x10 4: *clamshells, 2x10 each 5: *sidelying hip abduction, 2x10 each 6: Reviewed functional kegals 7: sit to stand with kegal, 2x5 Skilled Intervention: Patient was educated in proper exercise technique and purpose for exercises. Reviewed and educated patient on additions/changes for home exercise program as above (*). Skilled judgment was provided in selection of appropriate interventions. Provided written instruction for home exercise program to facilitate proper performance and compliance. Billing Therapeutic Exercise Treatment Minutes: 41 Total Treatment Time Minutes (timed/untimed): 41 Valarie Griffin, PT [facility] 03-11-2022 History of Presen t illness Narrative Episode Visit Count: 3 Therapist That Will Oversee The Plan Of Care: Valarie Griffin Start of Care Date: 02/22/22 Onset Date: 02/22/21 Plan of Care Certification Date: 02/22/22 Next Certification Due Date: 04/23/22 Patient Identified by Name and Date of : Yes REHABILITATION AND SPORTS THERAPY PHYSICAL THERAPY TREATMENT NOTE ASSESSMENT: Nettie Pozo Shows tolerated the session with no issues. She demonstrated improvements in urinary urgency, frequency, nocturia, and incontinence per patient report. Patient exhibited good endurance with exercises. The patient will continue to benefit from ongoing skilled physical therapy to progress toward set goals. PLAN FOR NEXT VISIT: continue to progress exercises SUBJECTIVE: Patient Reason for Visit: Pt reports improvement in urinary frequency, now urinating every 1.75-2.5 hours. Pt reports not waking at all last night to urinate, otherwise waking up on average 2x/night. Pt reports no urinary urgency, able to sense when bladder needs to empty without there being an emergency. Pt reports no UI since last session. Pt reports good compliance with HEP. Pain: Pain Pain Level: 0 Post Treatment Pain Post Treatment Pain Level: 0 OBJECTIVE MEASURES WITH LEVEL OF FUNCTION: Pelvic Floor Stress Incontinence: No Urgency: No Nocturia (times per night): 2 Daytime Frequency (hours): 1.75-2.5 TREATMENT: Therapeutic Exercise: 1: kegal holds, 4sec hold with 4sec rest, 1x10 2: supine TA bracing, 1x10 3: *supine TA bracing with alternating marches, 2x10 4: *clamshells, 2x10 each 5: *sidelying hip abduction, 2x10 each 6: Reviewed functional kegals 7: sit to stand with kegal, 2x5 Skilled Intervention: Patient was educated in proper exercise technique and purpose for exercises. Reviewed and educated patient on additions/changes for home exercise program as above (*). Skilled judgment was provided in selection of appropriate interventions. Provided written instruction for home exercise program to facilitate proper performance and compliance. Billing Therapeutic Exercise Treatment Minutes: 41 Total Treatment Time Minutes (timed/untimed): 41 Valarie Griffin PT documented in this encounter [facility] 03-01-2022 History of Presen t illness Narrative Episode Visit Count: 2 Therapist That Will Oversee The Plan Of Care: Valarie Griffin Start of Care Date: 02/22/22 Onset Date: 02/22/21 Plan of Care Certification Date: 02/22/22 Next Certification Due Date: 04/23/22 Patient Identified by Name and Date of : Yes REHABILITATION AND SPORTS THERAPY PHYSICAL THERAPY TREATMENT NOTE ASSESSMENT: Nettie Pozo Shows tolerated the session with no issues. She demonstrated improvements in urinary frequency and stress urinary incontinence, difficulty with unchanged nocturia. The patient will continue to benefit from ongoing skilled physical therapy to progress toward set goals. PLAN FOR NEXT VISIT: review bladder diary, progress exercises as tolerated SUBJECTIVE: Patient Reason for Visit: Pt reports not filling out bladder diary yet, good compliance with HEP otherwise. Pt reports attempting nocturia techniques with no improvement. Pt reports some improvement in urinary frequency, improvement in FELICITY with knack technique. Pain: Pain Pain Level: 0 Post Treatment Pain Post Treatment Pain Level: 0 OBJECTIVE MEASURES WITH LEVEL OF FUNCTION: Pelvic Floor Stress Incontinence: No Nocturia (times per night): 3 Daytime Frequency (hours): 0.75-1 TREATMENT: Therapeutic Exercise: 1: quick kegals, 1x10 2: *kegal holds, 3sec hold with 3sec rest, 2x10 3: *bridge with glute activation, 2x10 4: *hooklying hip abduction, L4 TB, 2x10 5: *supine TA bracing, 2x10 6: *posterior pelvic tilt, 2x10 Skilled Intervention: Patient was educated in proper exercise technique and purpose for exercises. Reviewed and educated patient on additions/changes for home exercise program as above (*). Skilled judgment was provided in selection of appropriate interventions. Provided written instruction for home exercise program to facilitate proper performance and compliance. Self-Half-Way Management: 1: Reviewed strategies to improve nocturia Skilled Intervention: Skilled judgment in the selection of proper modification for activity of daily living/home management based on clinical presentation, deficits, and needs. Billing Therapeutic Exercise Treatment Minutes: 35 Self-Care/Home Management Treatment Minutes: 4 Total Treatment Time Minutes (timed/untimed): 39 Valarie Griffin PT documented in this encounter [facility] 02-22-2022 History of Presen t illness Narrative Episode Visit Count: 1 Therapist That Will Oversee The Plan Of Care: Valarie Griffin Start of Care Date: 02/22/22 Onset Date: 02/22/21 Plan of Care Certification Date: 02/22/22 Next Certification Due Date: 04/23/22 Patient Identified by Name and Date of : Yes REHABILITATION AND SPORTS THERAPY PHYSICAL THERAPY EVALUATION PLAN OF CARE: Assessment: Nettie Candelario presents with chief complaint of urinary urgency and stress urinary incontinence that interferes with bladder function . She presents with impairments in decreased pelvic floor strength; impaired bladder function. PROMIS (Patient-Reported Outcomes Measurement Information System) scores were reviewed and self efficacy domain identified as a rehabilitation concern. Prognosis for therapy is Good due to: current objective clinical presentation . She will benefit from skilled therapy services to meet the goals established for this plan of care as noted below. Goals for Episode of Care: created on 02/22/22 through 04/23/22 Incontinence: Patient to demonstrate independence with HEP Patient to urinate every 2-4 hours Urinate 0-1 times per night Increase strength of pelvic floor to Power: at least3/5 Patient able to cough, sneeze, lift and/or exercise without leaking Patient reports urgency is experienced less than baseline / initial evaluation Patient reports increased ability to fully empty bladder Patient Goals: improve bladder function Planned Interventions, Frequency, and Duration: Current Frequency: 1x/week Duration: 4 weeks (reassess at 4 weeks and progress as indicated) Total Number of Visits Planned: 4 Planned Treatment Interventions: Therapeutic exercise ([id number]);Manual therapy ([id number]);Self-halfway management ([id number]);Patient/Family/Caregive r Education PLAN FOR NEXT VISIT: review bladder diary, progress exercises as tolerated Patient demonstrates good understanding of plan of care and treatment. The above goals and plan of care were discussed and agreed upon by patient/family. SUBJECTIVE: Nettie Candelario is a 36 year old female seen today for Pt reports UI with sneezing, coughing. Pt reports frequently feeling like she needs to urinate, especially when around water or while swimming. Pt reports bladder issues began about a year ago. 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 Occupation: [employer] Recreation / Current Exercise: yoga PAST MEDICAL HISTORY Diagnosis Date Abdominal Bloating Allergic Rhinitis Anxiety Depression Genital herpes GERD (Gastroesophageal Reflux Disease) History of abnormal Pap smear Madelung's deformity Obesity Other Malaise and Fatigue Urticaria PAST SURGICAL HISTORY Procedure Laterality Date CONIZATION CERVIX W/WO D&C RPR ELTRD EXC 1999 LEEP-Cervix PAST SURGICAL HISTORY OF 2010 sterilization with essure PAST SURGICAL HISTORY OF 02/07/14 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 REMOVE TONSILS AND ADENOIDS; AGE 12 OVER Intake Information: Prescription present Previous Treatment: None Falls Interview: No positive findings with falls interview Aquatic Screen: No Pain: Pain Pain Level: 0 Post Treatment Pain Post Treatment Pain Level: 0 PROMIS Scales Higher is Better 10/15/2020 12/30/2021 02/19/2022 Phys Func - Score - - 53 (within normal limits) Phys Func - Percentile - - 62 % Social Roles - Score - - 52 (within normal limits) Social Role - Percentile - - 58 % GH Physical - Score 44.9 50.8 (Very Good) - GH Physical - Percentile 31 % 53 % - GH Mental - Score 38.8 38.8 (Fair) - GH Mental - Percentile 13 % 13 % - Self-Eff Symptom - Score - - 35 (Low) Self-Eff Symptom - Percentile - - 7 % T-scores: mean of general population = 50. 5 points is clinically meaningfully difference Percentiles provide an indication of how the patient's score ranks in relation to the general population. Higher percentile rankings indicate better function/quality of life. 50th percentile is the average of the general population and indicates half of respondents had a worse score. Lower is Better 02/19/2022 Fatigue - Score 47 (within normal limits) Fatigue - Percentile 62 % T-scores: mean of general population = 50. 5 points is clinically meaningfully difference Percentiles provide an indication of how the patient's score ranks in relation to the general population. Higher percentile rankings indicate better function/quality of life. 50th percentile is the average of the general population and indicates half of respondents had a worse score. OBJECTIVE MEASURES WITH LEVEL OF FUNCTION: Pelvic Floor Pregnancies: 3 Births: 3 Vaginal Delivery: Standard Pain with penetration: Not sexually active;No Urinary/Bowel History : Urinary History;Bowel History Difficulty starting stream: No Incomplete emptying: Sometimes Stress Incontinence: Cough/sneeze;Jumping Urgency: Yes Frequency of Urgency Episodes: every 30 minutes Frequency of Leaks Secondary to Urge: 0 Nocturia (times per night): 3 Daytime Frequency (hours): 0.5 Fluid Intake: Water;Tea (8 oz measurements) Water : 8 Tea : 1 Difficulty evacuating / Excessive Straining: No Incomplete emptying: No Bowel Movement Frequency: 1x/day Fecal incontinence: No Pelvic Floor Muscle Assessment Consent for pelvic assessment/testing and treatment: Patient was educated regarding pelvic floor physical therapy assessment/treatment which may include pelvic floor and girdle muscle assessment externally or internally (vaginal or rectal approach).;Patient verbalized consent for the above treatment approaches today. Patient understands they have control of the treatment and an opportunity to stop treatment at any time. Pelvic Floor Muscle Assessment: PERFECT;Muscle Dynamics Power: 2 Endurance: 6 Fast Reps: 10 Contracton Pressure: Weak squeeze, felt as flick at various points along finger surface, not all the way around Duration of Contraction: >3 seconds Recruitment of pelvic floor muscles: Coordinated Range of Motion: Normal Ability to Lengthen pelvic floor: Yes Pelvic Floor Manual Assessment Pelvic Floor Tenderness/Hyperactivity: Tested Vaginally in Tested Vaginally in : Supine/hooklying (No tightness/tenderness noted.) LE AROM R LE AROM: WFL L LE AROM: WFL LE Flexibility Flexibility: Hamstring Flexibility;Hip Adductor;Hip Internal Rotation Flexibility;Hip External Rotation Flexibility R Hamstring Flexibility: WNL L Hamstring Flexibility: WNL R Adductor Flexibility: WNL L Adductor Flexibility: WNL R Hip Internal Rotation Flexibility: WNL L Hip Internal Rotation Flexibility: WNL R Hip External Rotation Flexibility: WNL L Hip External Rotation Flexibility: WNL LE Strength Trunk Strength: Lower Abdominals: 4/5 R LE Strength: 5/5 L LE Strength: 5/5 Education: Education Learning Preferences: Demonstration;Explanation;Perfo rmance;Printed Materials Barriers: None Learning/educational needs: Home exercise program;Plan of Care Education Provided: Yes, see treatment interventions for education provided Education Provided To: Patient Education Mode/Type: Demonstration;Explanation/Discu ssion;Literature/Printed Materials;Performance Response to Education/Teach Back: States/Identifies;Return Demonstration TREATMENT: PT Treatment Interventions: Therapeutic Exercise;Self-Half-Way Management Evaluation Therapeutic Exercise: 1: *quick kegals, 3x10 2: *isometric hip adduction, 2x10 3: *knack technique Skilled Intervention: Patient was educated in proper exercise technique and purpose for exercises. Reviewed and educated patient on additions/changes for home exercise program as above (*). Skilled judgment was provided in selection of appropriate interventions. Provided written instruction for home exercise program to facilitate proper performance and compliance. Self-Half-Way Management: 1: Reviewed pelvic floor anatomy and function with 3D pelvic model 2: Reviewed typical vs dysfunctional bladder health 3: Reviewed bladder irritants, importance of water intake 4: Reviewed urinary urgency suppression techniques 5: Reviewed toileting techniques to fully empty bladder 6: Reviewed strategies to improve urinary frequency, nocturia 7: *bladder diary: reviewed purpose and instructions Skilled Intervention: Skilled judgment in the selection of proper modification for activity of daily living/home management based on clinical presentation, deficits, and needs. Educated the patient regarding recommendations and provided written instruction to facilitate compliance. Billing * Evaluation Low Complexity: 1 Unit Therapeutic Exercise Treatment Minutes: 8 Self-Care/Home Management Treatment Minutes: 18 Total Treatment Time Minutes (timed/untimed): 49 Valarie Griffin PT documented in this encounter [facility] 01-17-2022 Miscellaneous Notes Patient has been identified by name and date of : Yes Patient phones for refill(s): Pending Prescriptions Disp Refills ACYCLOVIR 400 MG TABLET 180 tablet 5 Sig: Take 1 tablet by mouth twice daily. VLAD: No Patient requesting acyclovir prescription be sent to [facility]. Patient is having trouble with refills from [facility] and is switching pharmacies. Date of last office visit with pcp: 06/28/2022 Future appt: none Last 2 Encounter Wt Readings: Date: Wt: 01/05/2022 93.9 kg (207 lb) 06/18/2021 106.1 kg (234 lb) Previous labs/tests for medication: Blood Pressure: BUN (mg/dL) Date Value 05/11/2018 14 Sodium (mmol/L) Date Value 05/11/2018 139 Last 1 Encounter BP Readings: Date: BP: 01/05/2022 120/84 Liver Function: ALT (U/L) Date Value 05/11/2018 28 AST (U/L) Date Value 05/11/2018 24 Please advise. Thank you. Melissa Olivier RN documented in this encounter [facility] 01-13-2022 Miscellaneous Notes Cymbalta was refilled #30 with 2 refills to [facility] on 12/22/21. Pt notified via [employer] to check with pharmacy. Kiara Romero Ma documented in this encounter [facility] 01-13-2022 Miscellaneous Notes The following approved medication requests have been transmitted electronically. Signed Prescriptions Disp Refills DULoxetine (CYMBALTA) 60 mg capsule 90 capsule 1 Sig: Take 1 capsule by mouth once daily. Dangelo Cedeno APRN.RICKY documented in this encounter [facility] 01-05-2022 History of Presen t illness Narrative Chief Complaint Patient presents with: Lump: right underarm x 2 years HPI Nettie Candelario is a 36 year old female who presents here today for Above Complaints. Today: Has a lump under her right upper inner arm. Noticed it about 2 years, but hasn't been bothering her at all. Unsure if getting bigger in size, or if is noticing it more r/t losing weight and lose skin. Bladder-needs to urinate all the time. Sneezing and coughing makes it unable for her to hold her urine. Has had 3 children, but this is getting worse. Past medical history, appointments, medications, allergies reviewed. 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 acyclovir (ZOVIRAX) 400 mg tablet TAKE 1 TABLET BY MOUTH TWICE A DAY levonorgestrel (MIRENA) 20 mcg/24 hr (5 years) IUD 1 Each by INTRAUTERINE route continuous. No current facility-administered medications on file prior to visit. Social History Social History Tobacco Use Smoking status: Former Smoker Packs/day: 0.30 Years: 8.00 Pack years: 2.40 Types: Cigarettes Smokeless tobacco: Never Used Vaping Use Vaping Use: Some days Substance Use Topics Alcohol use: Yes Alcohol/week: 5.0 standard drinks Types: 1 Cans of Beer (12oz), 1 Mixed Drinks per week Comment: Socially Drug use: No Review of Symptoms REVIEW OF SYSTEMS see HPI, otherwise negative EXAM: BP 120/84 (BP Site: Left Arm, BP Position: Sitting, BP Cuff Size: Large Adult) Pulse 77 Resp 16 Wt 93.9 kg (207 lb) LMP 02/07/2015 SpO2 99% BMI 37.38 kg/m General Appearance: Well appearing, alert, in no acute distress, well-hydrated, well nourished. and Obese. Skin: Skin color, texture, turgor normal, no suspicious rashes or lesions. Small soft moveable non-painful area to right upper inner arm. Health Maintenance List COVID-19 VACCINE(3 - Booster for Moderna series) due on 04/14/2021 DTAP,TDAP,TD(3 - Td or Tdap) due on 03/26/2026 PAP TESTING due on 06/18/2026 HPV TESTING due on 06/18/2026 INFLUENZA Completed HEPATITIS C SCREENING Completed HIV SCREENING Completed Data reviewed Previous records, office notes ASSESSMENT/PLAN: 1. Lipoma of right upper extremity - ICD9: 214.8, ICD10: D17.21 (primary diagnosis) Monitor. No intervention necessary at this time. 2. Stress incontinence - ICD9: [id number], ICD10: N39.3 UA negative Recommend pelvic floor therapy - CONSULT TO PHYSICAL THERAPY - UA DIP, URINE (POC) Marysol Soriano APRN.PROMOTIONAL ADVERTISING ASSISTANT documented in this encounter [facility] 11-18-2021 Miscellaneous Notes greta-- 12/11/20 Next -- None on books Last refill-- 08/16/21 30 with 2 refills Last labs-- besides paps 05/11/2018 documented in this encounter [facility] documented as of this encounter (statuses as of 11/18/2021) [facility] History of Past illness Narrative* Problem Noted Date Resolved Date SUPRF HIGH RISK NEC [V23.89] 0 03/21/2011 Candidiasis of vulva and vagina 07/05/2010 03/21/2011 Abdominal pain 02/25/2009 03/21/2011 documented as of this encounter (statuses as of 12/22/2021) [facility] History of Past illness Narrative* Problem Noted Date Resolved Date SUPRF HIGH RISK NEC [V23.89] 0 03/21/2011 Candidiasis of vulva and vagina 07/05/2010 03/21/2011 Abdominal pain 02/25/2009 03/21/2011 documented as of this encounter (statuses as of 01/05/2022) [facility] History of Past illness Narrative* Problem Noted Date Resolved Date SUPRF HIGH RISK NEC [V23.89] 0 03/21/2011 Candidiasis of vulva and vagina 07/05/2010 03/21/2011 Abdominal pain 02/25/2009 03/21/2011 documented as of this encounter (statuses as of 01/13/2022) [facility] History of Past illness Narrative* Problem Noted Date Resolved Date SUPRF HIGH RISK NEC [V23.89] 0 03/21/2011 Candidiasis of vulva and vagina 07/05/2010 03/21/2011 Abdominal pain 02/25/2009 03/21/2011 documented as of this encounter (statuses as of 01/13/2022) [facility] History of Past illness Narrative* Problem Noted Date Resolved Date SUPRF HIGH RISK NEC [V23.89] 0 03/21/2011 Candidiasis of vulva and vagina 07/05/2010 03/21/2011 Abdominal pain 02/25/2009 03/21/2011 documented as of this encounter (statuses as of 01/17/2022) [facility] History of Past illness Narrative* Problem Noted Date Resolved Date SUPRF HIGH RISK NEC [V23.89] 0 03/21/2011 Candidiasis of vulva and vagina 07/05/2010 03/21/2011 Abdominal pain 02/25/2009 03/21/2011 documented as of this encounter (statuses as of 02/22/2022) [facility] History of Past illness Narrative* Problem Noted Date Resolved Date SUPRF HIGH RISK NEC [V23.89] 0 03/21/2011 Candidiasis of vulva and vagina 07/05/2010 03/21/2011 Abdominal pain 02/25/2009 03/21/2011 documented as of this encounter (statuses as of 03/01/2022) [facility] History of Past illness Narrative* Problem Noted Date Resolved Date SUPRF HIGH RISK NEC [V23.89] 0 03/21/2011 Candidiasis of vulva and vagina 07/05/2010 03/21/2011 Abdominal pain 02/25/2009 03/21/2011 documented as of this encounter (statuses as of 03/11/2022) [facility] History of Past illness Narrative* Problem Noted Date Resolved Date SUPRF HIGH RISK NEC [V23.89] 0 03/21/2011 Candidiasis of vulva and vagina 07/05/2010 03/21/2011 Abdominal pain 02/25/2009 03/21/2011 documented as of this encounter (statuses as of 04/28/2022) [address]27-2010 History of Past illness Narrative* Problem Noted Date Resolved Date SUPRF HIGH RISK NEC [V23.89] 0 03/21/2011 Candidiasis of vulva and vagina 07/05/2010 03/21/2011 Abdominal pain 02/25/2009 03/21/2011 documented as of this encounter (statuses as of 07/14/2022) [address]27-2010 History of Past illness Narrative* Problem Noted Date Resolved Date SUPRF HIGH RISK NEC [V23.89] 0 03/21/2011 Candidiasis of vulva and vagina 07/05/2010 03/21/2011 Abdominal pain 02/25/2009 03/21/2011 documented as of this encounter (statuses as of 07/28/2022) [place] [id number] History of Past illness Narrative* Problem Noted Date Resolved Date SUPRF HIGH RISK NEC [V23.89] 0 03/21/2011 Candidiasis of vulva and vagina 07/05/2010 03/21/2011 Abdominal pain 02/25/2009 03/21/2011 documented as of this encounter (statuses as of 08/03/2022) [address]-2010 History of Past illness Narrative* Problem Noted Date Resolved Date SUPRF HIGH RISK NEC [V23.89] 0 03/21/2011 Candidiasis of vulva and vagina 07/05/2010 03/21/2011 Abdominal pain 02/25/2009 03/21/2011 documented as of this encounter (statuses as of 08/11/2022) [address]-2010 History of Past illness Narrative* Problem Noted Date Resolved Date SUPRF HIGH RISK NEC [V23.89] 0 03/21/2011 Candidiasis of vulva and vagina 07/05/2010 03/21/2011 Abdominal pain 02/25/2009 03/21/2011 documented as of this encounter (statuses as of 08/19/2022) [address]-2010 History of Past illness Narrative* Problem Noted Date Resolved Date SUPRF HIGH RISK NEC [V23.89] 0 03/21/2011 Candidiasis of vulva and vagina 07/05/2010 03/21/2011 Abdominal pain 02/25/2009 03/21/2011 documented as of this encounter (statuses as of 10/04/2022) [place] [id number] History of Past illness Narrative* Problem Noted Date Diagnosed Date Resolved Date SUPRF HIGH RISK NEC [V23.89] 07/05/2010 03/21/2011 Candidiasis of vulva and vagina 07/05/2010 03/21/2011 Abdominal pain 02/25/2009 03/21/2011 documented as of this encounter (statuses as of 03/03/2023) [facility]12[facility] History of Past illness Narrative* Problem Noted Date Diagnosed Date Resolved Date SUPRF HIGH RISK NEC [V23.89] 07/05/2010 03/21/2011 Candidiasis of vulva and vagina 07/05/2010 03/21/2011 Abdominal pain 02/25/2009 03/21/2011 documented as of this encounter (statuses as of 03/28/2023) [facility]12-27-2010 History of Past illness Narrative* Problem Noted Date Diagnosed Date Resolved Date SUPRF HIGH RISK NEC [V23.89] 07/05/2010 03/21/2011 Candidiasis of vulva and vagina 07/05/2010 03/21/2011 Abdominal pain 02/25/2009 03/21/2011 documented as of this encounter (statuses as of 05/17/2023) [place] [address]-27-2010 History of Past illness Narrative* Problem Noted Date Diagnosed Date Resolved Date SUPRF HIGH RISK NEC [V23.89] 07/05/2010 03/21/2011 Candidiasis of vulva and vagina 07/05/2010 03/21/2011 Abdominal pain 02/25/2009 03/21/2011 documented as of this encounter (statuses as of 05/17/2023) [facility] Lipoma of right upper extremity- Primary Lipoma of other specified sites Stress incontinence Female stress [facility]ence [facility] Stress incontinence- Primary Female stress incontinence Muscle weakness Muscle weakness (generalized) [facility] Diagnosis Stress incontinence- Primary Female stress incontinence Muscle weakness Muscle weakness (generalized) [facility] Diagnosis Stress incontinence- Primary Female stress incontinence Muscle weakness Muscle weakness (generalized) [facility] Diagnosis Perineal irritation- Primary Unspecified disorder of skin and subcutaneous tissue [facility] Diagnosis Encounter for gynecological examination (general) (routine) without abnormal findings- Primary Counseling for control regarding intrauterine device (IUD) Perineal irritation Unspecified disorder of skin and subcutaneous tissue Need for prophylactic vaccination/inoculation against viral disease Need for prophylactic vaccination and inoculation against other viral diseases [facility]* Diagnosis Situational anxiety- Primary Other anxiety states Insomnia secondary to anxiety Anxiety state, unspecified Anxiety with depression Obesity, Class II, BMI 35-39.9 Obesity, unspecified documented in this encounter [facility] note* Diagnosis Serum potassium elevated- Primary Hyperpotassemia documented in this encounter [facility] note* Diagnosis Encounter for IUD removal and reinsertion- Primary Encounter for removal and reinsertion of intrauterine contraceptive device Encounter for IUD insertion Encounter for insertion of intrauterine contraceptive device documented in this encounter [facility] note* Diagnosis Obesity, Class III, BMI 40-49.9 (morbid obesity) (HCC)- Primary Morbid obesity Anxiety with depression Situational anxiety Other anxiety states Insomnia secondary to anxiety Anxiety state, unspecified documented in this encounter [facility] note* Diagnosis Obesity, Class III, BMI 40-49.9 (morbid obesity) (HCC) Morbid obesity documented in this encounter [facility] for referral (narrative)* Outpatient Procedure (Routine) - Pending Review Specialty Diagnoses / Procedures Referred By Lena zamora Referred To Contact [facility] Diagnoses Counseling for control regarding intrauterine device (IUD) Procedures INSERT INTRAUTERINE DEVICE LEVONORGESTREL IU 52MG 5 YR INSERT INTRAUTERINE DEVICE Dennis Snyder MD [address] [place] [address] [facility] [address] [place] [address] Referral ID Status Reason Start Date Expiration Date Visits Requested Visits Authorized [id number] Pending Review Auto-Generat ed Referral 07/12/2022 07/12/[address] [facility] Reason for Referral Specialty Diagnoses / Procedures Referred By Lena zamora Referred To Contact [facility] Diagnoses Stress incontinence Procedures CONSULT TO PHYSICAL THERAPY PHYSICAL THERAPY EVALUATION HIGH COMPLEX 45 MINS Marysol Soriano APRN.PROMOTIONAL ADVERTISING ASSISTANT [address] [place] [address] [facility] [address] [address] Referral ID Status Reason Start Date Expiration Date Visits Requested Visits Authorized [id number] Pending Review Auto-Generat ed Referral 01/05/2022 01/05/2023 1 1 Specialty Diagnoses / Procedures Referred By Lena zamora Referred To Contact [facility] Diagnoses Stress incontinence Procedures PT REHAB FOLLOW UP ORDER THERAPEUTIC EXERCISES RE, EA 15 MIN. Valarie Griffin, PT [address] [place] [address] [address] Referral ID Status Reason Start Date Expiration Date Visits Requested Visits Authorized [id number] Pending Review PCP Requested Referral Auto-Generate d Referral 02/22/2022 05/23/2022 1 1 Medications Administered Section Inactive Administered Medications - up to 3 most recent administrations Medication Order MAR Action Action Date Dose Rate Site levonorgestrel 20 mcg/24 hours (8 yrs) 52 mg 1 Each intrauterine device (MIRENA) 1 Each, INTRAUTERINE, ONCE (UP TO 30 DAYS AMB), 1 dose, On Mon08/19/22 at 1430, Hazardous Potential Reproductive Risk Drug: Use appropriate PPE. Given 08/19/2022 2:16 PM EST 1 Each Summary Purpose Family History No Family History Records Found Advance Directives No Advanced Directives Records Found Additional Source Comments Source Comments (unrecognize d section and content) In the event this informatio n is protected by the Federal Confidentiality of Alcohol and Drug Abuse Patient Records regulations: The Federal rules restrict any use of the information to criminally investigate or prosecute any alcohol or drug abuse patient.[facility] the event this information is protected by the Federal Confidentiality of Alcohol and Drug Abuse Patient Records regulations: The Federal rules restrict any use of the information to criminally investigate or prosecute any alcohol or drug abuse patient.[facility] Center[facility] the event this information is protected by the Federal Confidentiality of Alcohol and Drug Abuse Patient Records regulations: The Federal rules restrict any use of the information to criminally investigate or prosecute any alcohol or drug abuse patient.[facility] Center[facility] the event this information is protected by the Federal Confidentiality of Alcohol and Drug Abuse Patient Records regulations: The Federal rules restrict any use of the information to criminally investigate or prosecute any alcohol or drug abuse patient.[facility] Center[facility] the event this information is protected by the Federal Confidentiality of Alcohol and Drug Abuse Patient Records regulations: The Federal rules restrict any use of the information to criminally investigate or prosecute any alcohol or drug abuse patient.[facility] Center[facility] the event this information is protected by the Federal Confidentiality of Alcohol and Drug Abuse Patient Records regulations: The Federal rules restrict any use of the information to criminally investigate or prosecute any alcohol or drug abuse patient.[facility] Center[facility] the event this information is protected by the Federal Confidentiality of Alcohol and Drug Abuse Patient Records regulations: The Federal rules restrict any use of the information to criminally investigate or prosecute any alcohol or drug abuse patient.[facility] Center[facility] the event this information is protected by the Federal Confidentiality of Alcohol and Drug Abuse Patient Records regulations: The Federal rules restrict any use of the information to criminally investigate or prosecute any alcohol or drug abuse patient.[facility] Center[facility] the event this information is protected by the Federal Confidentiality of Alcohol and Drug Abuse Patient Records regulations: The Federal rules restrict any use of the information to criminally investigate or prosecute any alcohol or drug abuse patient.[facility] Center[facility] the event this information is protected by the Federal Confidentiality of Alcohol and Drug Abuse Patient Records regulations: The Federal rules restrict any use of the information to criminally investigate or prosecute any alcohol or drug abuse patient.[facility] CenterIn the event this information is protected by the Federal Confidentiality of Alcohol and Drug Abuse Patient Records regulations: The Federal rules restrict any use of the information to criminally investigate or prosecute any alcohol or drug abuse patient.[facility] CenterIn the event this information is protected by the Federal Confidentiality of Alcohol and Drug Abuse Patient Records regulations: The Federal rules restrict any use of the information to criminally investigate or prosecute any alcohol or drug abuse patient.[facility] CenterIn the event this information is protected by the Federal Confidentiality of Alcohol and Drug Abuse Patient Records regulations: The Federal rules restrict any use of the information to criminally investigate or prosecute any alcohol or drug abuse patient.[facility] CenterIn the event this information is protected by the Federal Confidentiality of Alcohol and Drug Abuse Patient Records regulations: The Federal rules restrict any use of the information to criminally investigate or prosecute any alcohol or drug abuse patient.[facility] CenterIn the event this information is protected by the Federal Confidentiality of Alcohol and Drug Abuse Patient Records regulations: The Federal rules restrict any use of the information to criminally investigate or prosecute any alcohol or drug abuse patient.[facility] CenterIn the event this information is protected by the Federal Confidentiality of Alcohol and Drug Abuse Patient Records regulations: The Federal rules restrict any use of the information to criminally investigate or prosecute any alcohol or drug abuse patient.[facility] CenterIn the event this information is protected by the Federal Confidentiality of Alcohol and Drug Abuse Patient Records regulations: The Federal rules restrict any use of the information to criminally investigate or prosecute any alcohol or drug abuse patient.[facility] CenterIn the event this information is protected by the Federal Confidentiality of Alcohol and Drug Abuse Patient Records regulations: The Federal rules restrict any use of the information to criminally investigate or prosecute any alcohol or drug abuse patient.[facility] CenterIn the event this information is protected by the Federal Confidentiality of Alcohol and Drug Abuse Patient Records regulations: The Federal rules restrict any use of the information to criminally investigate or prosecute any alcohol or drug abuse patient.[facility] CenterIn the event this information is protected by the Federal Confidentiality of Alcohol and Drug Abuse Patient Records regulations: The Federal rules restrict any use of the information to criminally investigate or prosecute any alcohol or drug abuse patient.[facility] Reason for Visit (unrecogniz ed section and content) Reason Onset Date Comments Refill Request 2021 Reason Comments Lump right underarm x 2 y ears Reason Onset Date Comments Refill Request 01/13/2022 Reason Onset Date Comments Refill Request 01/17/2022 Reason Comments PT Eval Specialty Diagnoses / Procedures Referred By Contac t Referred To Contact [facility] Diagnoses Stress incontinence Procedures CONSULT TO PHYSICAL THERAPY PHYSICAL THERAPY EVALUATION HIGH COMPLEX 45 MINS Marysol Soriano APRN.PROMOTIONAL ADVERTISING ASSISTANT [address] [place] [address] [address] Referral ID Status Reason Start Date Expiration Date Visits Re quested Visits Authorized [id number] Closed 02/03/2022 07/09/2022 1 1 Reason Comments Physical Therapy Specialty Diagnoses / Procedures [facility] Diagnoses Stress incontinence Procedures PT REHAB FOLLOW UP ORDER THERAPEUTIC EXERCISES RE, EA 15 MIN. Marysol Soriano APRN.PROMOTIONAL ADVERTISING ASSISTANT [address] [place] [address] [address] Referral ID Status Reason Start Date Expiration Date Visits Requested Visits Authorized [id number] Authorized PCP Requested Referral Auto-Generate d Referral 02/28/2022 05/31/2022 8 8 Reason Comments Yearly Exam Reason Onset Date Comments Well Woman Gardasil Injection 07/12/2022 Reason Comments Anxiety Reason Comments Results Reason Onset Date Comments Refill Request 08/10/2022 Reason Onset Date Comments Insertion Of IUD 08/19/2022 Specialty Diagnoses / Procedures [facility] Contact [facility] Diagnoses Menorrhagia with regular cycle Procedures REMOVE INTRAUTERINE DEVICE REMOVE INTRAUTERINE DEVICE Dennis Snyder MD [address] [place] [address] [address] [place] [address] Referral ID Status Reason Start Date Expiration Date V isits Requested Visits Authorized [id number] Closed Auto-Generate d Referral 04/08/2022 04/06/2023 1 1 Reason Comments Weight Loss Adipex Reason Onset Date Comments Refill Request 03/26/2023 Reason Onset Date Comments Refill Request 05/16/2023 Care Teams (unrecognized sec tion and content) Chartered Financial Analyst Relationship Specialty Start Date End Date Ramon Waller, DO [address] [place] [address] PCP - General Family Practice 03/11/15 Chartered Financial Analyst Relationship Specialty Start Date End Date Ramon Waller DO [address] [place] [address] PCP - General Family Practice 03/11/15 Chartered Financial Analyst Relationship Specialty Start Date End Date Ramon Waller DO [address] [place] [address] PCP - General Family Practice 03/11/15 Chartered Financial Analyst Relationship Specialty Start Date End Date Ramon Waller DO [address] [facility] [place] [address] PCP - General Family Practice 03/11/15 Chartered Financial Analyst Relationship Specialty Start Date End Date Ramon Waller DO [address] [facility] [place] [address] PCP - General Family Practice 03/11/15 Chartered Financial Analyst Relationship Specialty Start Date End Date Ramon Waller DO [address] [facility] [place] [address] PCP - General Family Practice 03/11/15 Chartered Financial Analyst Relationship Specialty Start Date End Date Ramon Waller DO [address] [facility] [place] [address] PCP - General Family Practice 03/11/15 Chartered Financial Analyst Relationship Specialty Start Date End Date Ramon Waller, DO [address] [place] [address] PCP - General Family Practice 03/11/15 Chartered Financial Analyst Relationship Specialty Start Date End Date Ramon Waller, DO [address] [place] [address] PCP - General Family Medicine 03/11/15 Chartered Financial Analyst Relationship Specialty Start Date End Date Ramon Waller, DO [address] [place] [address] PCP - General Family Medicine 03/11/15 Chartered Financial Analyst Relationship Specialty Start Date End Date Ramon Waller, DO [address] [place] [address] PCP - General Family Medicine 03/11/15 Chartered Financial Analyst Relationship Specialty Start Date End Date Ramon Waller, DO [address] [place] [address] PCP - General Family Medicine 03/11/15 Chartered Financial Analyst Relationship Specialty Start Date End Date Ramon Waller, DO [address] [place] [address] PCP - General Family Medicine 03/11/15 Chartered Financial Analyst Relationship Specialty Start Date End Date Ramon Waller, DO [address] [place] [address] PCP - General Family Medicine 03/11/15 Chartered Financial Analyst Relationship Specialty Start Date End Date Ramon Waller, DO [address] [place] [address] PCP - General Family Medicine 03/11/15 Chartered Financial Analyst Relationship Specialty Start Date End Date Ramon Waller DO [address] [place] [address] PCP - General Family Medicine 03/11/15 Chartered Financial Analyst Relationship Specialty Start Date End Date Waller Ramon Mishra, DO [address] [place] [address] PCP - General Family [facility] 03/11/15 Chartered Financial Analyst Relationship Specialty Start Date End Date Jalil Ramon Mishra, DO [address] [place] [address] PCP - General [facility] 03/11/15 Chartered Financial Analyst Relationship Specialty Start Date End Date Ramon Waller, DO [address] [place], [place] [address] PCP - General Family [facility] 03/11/15 INFORMATION SOURCE (unrecogn ized section and content) FOR RECORDS PERTAINING TO PATIENTS WHO ARE OR HAVE BEEN ENROLLED IN A CHEMICAL DEPENDENCY/SUBSTANCEABUSE PROGRAM, SOME INFORMATION MAY BE OMITTED. This clinical summary was aggregated from multiple sources. Caution should be exercised in using it in the provision of clinical care. This summary normalizes information from multiple sources, and as a consequence, information in this document may materially change the coding, format and clinical context of patient data. In addition, data may be omitted in some cases. CLINICAL DECISIONS SHOULD BE BASED ON THE PRIMARY CLINICAL RECORDS. [facility] [email or web address] [facility]. provides no warranty or guarantee of the accuracy or completeness of information in this document.
== END | disposition home or self-care (01) ==
PROVIDERS: PCP Student in an Organized Health Care Education/Training Program; Referring Provider Physician Assistant; Visit Provider Physician Assistant
DX: S99.921A Unspecified injury of right foot, initial encounter (principal); X58.XXXA Exposure to other specified factors, initial encounter
CPT/HCPCS: 73660